=== PATIENT | female | born 1965 | race Caucasian/White ===

== ENCOUNTER → 2016-06-19 | Outpatient (CLI) | payer OTHER ==
[~2016-06-19] MED LIST: AMIT75TA2 PO; ASPEC325 PO; ASPI81TA28 PO; ATV/1 PO; CALC600T9 PO; FRCT/ PO; KETO10TA PO; LEVO75TA PO; MELO15TA4 PO; MULT-1027 PO; OXYC-57 PO; OXYC-88 PO; SUMA6KIT IM; [UNRECOGNIZED DRUG - OTHER] PO
[2016-06-19 15:07] LABS: BASO % 0.7 %; BASO ABS # 0.04 K/uL (0-0.2); COMPLETE YES; HEMATOCRIT 38.5 % (37-47); IG% 0.2 %; LYMPH ABS # 1.42 K/uL (1.2-3.4); MEAN CORPUSCULAR HEMOGLOBIN 33.7 pg (25-34); MEAN PLATELET VOLUME 9.9 fL (7.4-10.4); MONO % 12.5 %; NEUT % 59.6 %; PLATELET COUNT 547 K/uL (130-400); RED BLOOD COUNT 3.89 M/uL (4.2-5.4); WHITE BLOOD COUNT 5.91 K/uL (4.8-10.8)
== END | disposition home or self-care (01) ==
LOC: C.LAB 13:31
PROVIDERS: ATTEND Internal Medicine Hematology & Oncology
DX: D47.3 Essential (hemorrhagic) thrombocythemia (principal)

== ENCOUNTER → 2016-07-09 | Outpatient (CLI) | payer OTHER ==
--- NOTE | 2016-07-09 13:33 | MAMMOGRAPHY REPORT ---
UNILATERAL LEFT DIGITAL DIAGNOSTIC MAMMOGRAM TOMOSYNTHESIS WITH CAD: 07/09/2016 CLINICAL HISTORY: 50 year-old woman presents for follow-up in the left breast for probably benign cl ustered microcalcifications. She has a history of a benign right breast MRI guided biopsy and stron g family history of breast cancer. TECHNIQUE: Left breast CC and MLO 2-D digital and tomosynthesis images, spot magnification left CC a nd ML views were obtained. Current study was also evaluated with a Computer Aided Detection (CAD) s ystem. COMPARISON: Comparison is made to exams dated: 05/09/2016 mammogram, 12/29/2015 mammogram, 12/23/2015 mammogram, and 12/20/2014 mammogram - [facility]. BREAST COMPOSITION: The tissue of the left breast is extremely dense, which lowers the sensitivity of mammography. FINDINGS: The parenchymal pattern of the left breast is similar to prior mammograms. There are roun d and punctate microcalcifications in clusters and groupings throughout the entire left breast. The most concentrated cluster of microcalcifications is seen in the upper outer middle one third of the breast and spot magnification views were obtained in that area. In the upper outer middle one thir d of the left breast, 6-7 cm from the nipple, there is a 6 mm cluster of round and punctate microcal cifications. These have not significantly changed compared to the spot magnification views obtained on 12/29/2015, but are increasingly conspicuous compared to the 2013 and prior mammograms, therefor e indeterminate. Given the numerous other scattered and grouped round and punctate microcalcificati ons throughout the left breast, these may represent benign fibrocystic changes. However, given the increase and strong family history of breast cancer, definitive characterization with tissue samplin g of this dominant cluster is recommended. No obvious new mass, architectural distortion or new clu ster of calcifications is seen. IMPRESSION: ACR BI-RADS CATEGORY 4B: INTERMEDIATE SUSPICION FOR MALIGNANCY 1. Left breast stereotactic guided biopsy is recommended for a dominant 6 mm cluster of microcalcif ications in the upper outer middle one third of the breast, although these might calcifications coul d represent fibrocystic changes given numerous other scattered and grouped microcalcifications seen throughout the left breast. 2. Depending on pathology results, the patient is tentatively scheduled for a follow-up breast MRI in November 2016 to ensure stability status post benign MRI guided biopsy performed in May 2016. These results and recommendations were discussed with the patient at the time of the exam. She tent atively scheduled the left breast biopsy prior to leaving our department. Approximately 10% of breast cancers are not detected with mammography. A negative mammographic repor t should not delay biopsy if a clinically suggestive mass is present. Merlyn Eduardo M.D. ay/:07/09/2016 12:19:27 Drywall Hanger Framer: Xenia LOREDO(Karen)(Cr), [facility] letter sent: Abnormal 4/5 BI-RADS Code: ACR BI-RADS Category 4B: Intermediate Suspicion For Malignancy
== END | disposition home or self-care (01) ==
LOC: C.MAMM 09:37
PROVIDERS: ATTEND Obstetrics & Gynecology
DX: R92.0 Mammographic microcalcification found on diagnostic imaging of breast (principal)

== ENCOUNTER → 2016-07-19 | Outpatient (CLI) | payer OTHER ==
--- NOTE | 2016-07-19 08:30 | Discharge Instructions ---
Discharge Instructions Procedure Procedure Date: Jul 19, 2016. Reason for visit: Left Calcs. Discharge Discharge Date: Jul 19, 2016. Discharge Diagnosis: status post breast biopsy Instructions Activity Recommendations: Additional Limitations (see below) Return to School/Work: no limitations Recommended Home Diet: No Limitations Provider Instructions: ACTIVITY RECOMMENDATIONS: * No lifting, pushing, pulling or exercising the affected side for three days. RETURN TO SCHOOL/WORK: * You may return to work/school after the procedure, but do not perform any strenuous activities for 24 to 48 hours. MEDICATIONS: * Tylenol (two 325 mg) every four to six hours if needed for mild pain (if not allergic to Tylenol). DIET: * Resume previous diet. SPECIAL CARE INSTRUCTIONS: * Keep biopsy site dry for 24 hours. May shower after 24 hours, but do not soak (bathe) incision. * May remove Tegaderm (plastic patch) tomorrow AFTER showering. * Leave the steri-strips on for one week. Allow the steri-strips to fall off by themselves. If not off after one week, you may remove them. You may place a Bandaid crosswise over the strips, if desired. * Apply ice 10 minutes on and 10 minutes off as needed. * Wear a bra at bedtime to sleep more comfortably for 2-3 days. * Your referring physician should have the results after approximately 5 to 7 business days. * Call for unusual bleeding, fever, drainage, etc or if you have any questions call during normal business hours or after hours call Dr Malin, . FOLLOW UP VISIT: Follow-up with Referring Physician as scheduled. Allergies Coded Allergies: Penicillins (Verified Allergy, Mild, RASH, 05/22/16) RASH Sulfa Antibiotics (Verified Allergy, Unknown, RASH, 05/22/16) Vida Bautista Recommendations: Call your doctor if: * Temperature above 101 degrees * Pain not relieved by pain medicine ordered * There is increased drainage or redness from any incision * You have any unanswered questions or concerns. Your Doctors Instructions noted above were prepared by provider Candice Malin. Patient Signature Section: Patient Instructions Signature Page Marah Pollackz Patient (or Guardian) Signature/Date: I have read and understand the instructions given to me by my caregivers. Caregiver/RN/Doctor Signature/Date: The above-named patient and/or guardian has received patient instructions on this date. + Original Patient Signature Page (only) stays with chart. Please make copy for patient.
--- NOTE | 2016-07-19 13:44 | MAMMOGRAPHY REPORT ---
STEREOTACTIC GUIDED BIOPSY LEFT BREAST: 07/19/2016 CLINICAL HISTORY: Indeterminate calcifications in the left upper outer quadrant. PATIENT CONSENT: The procedure, risks, benefits, and alternatives of stereotactic biopsy with clip p lacement were discussed with the patient, and verbal and written consent was obtained. A timeout wa s performed immediately prior to the procedure. PROCEDURE DESCRIPTION: With stereotactic guidance, aseptic technique, and lidocaine as a local anest hetic (1% lidocaine to anesthetize the skin and 1% lidocaine with epinephrine to anesthetize the nereida per tissues), the area of concern was sampled multiple times with a 9-gauge vacuum-assisted biopsy n eedle (Suros Eviva). The path of approach was lateral. The specimen radiograph demonstrates calcif ications to be present in the samples. A metallic marker clip was placed at the biopsy site. This was confirmed on postprocedure mammograms. Direct pressure was applied at the biopsy site and hemos tasis was readily achieved. The patient tolerated the procedure without complication. She was give n wound care instructions. COMPARISON: Comparison is made to exams dated: 07/09/2016 mammogram, 12/23/2015 mammogram, 12/29/2015 m ammogram, 04/02/2016 breast MRI, 09/27/2015 breast MRI, and 12/20/2014 mammogram - [facility]. IMPRESSION: STEREOTACTIC GUIDED BIOPSY Stereotactic guided biopsy of indeterminate calcifications in the left upper outer quadrant, with cl ip placement. The patient will receive pathology results from her referring provider. If the patho logy results are benign, the patient can return to routine annual mammography, due December 2016. Candice Malin M.D. /:07/19/2016 08:32:46 Polymerization Helper: Joana LOREDO(Karen)(M), [facility]
--- NOTE | 2016-07-19 13:46 | MAMMOGRAPHY REPORT ---
UNILATERAL LEFT DIGITAL DIAGNOSTIC MAMMOGRAM: 07/19/2016 CLINICAL HISTORY: Status post stereotactic biopsy of left upper outer quadrant calcifications. TECHNIQUE: Postprocedural left CC and LM views were obtained. COMPARISON: Comparison is made to exams dated: 05/09/2016 mammogram, 04/02/2016 breast MRI, 6 mammogram, 12/23/2015 mammogram, 07/09/2016 mammogram, and 12/20/2014 mammogram - [facility]. BREAST COMPOSITION: The tissue of the left breast is extremely dense, which lowers the sensitivity of mammography. FINDINGS: A new biopsy marker clip is seen at the site of the biopsied calcifications in the left u pper outer quadrant. No significant post biopsy hematoma is seen. IMPRESSION: POST PROCEDURE IMAGING FOR MARKER PLACEMENT New biopsy marker clip status post stereotactic biopsy of left upper outer quadrant calcifications. Pathology results are pending. Approximately 10% of breast cancers are not detected with mammography. A negative mammographic repor t should not delay biopsy if a clinically suggestive mass is present. Candice Malin M.D. ah/:07/19/2016 08:44:05 Transfer Coordinator: Joana LOREDO(Karen)(M), [facility] BI-RADS Code: Post Procedure Imaging For Marker Placement
== END | disposition home or self-care (01) ==
LOC: C.MAMM 07:58
PROVIDERS: ATTEND Obstetrics & Gynecology
DX: R92.1 Mammographic calcification found on diagnostic imaging of breast (principal)

== ENCOUNTER → 2016-07-25 | Day surgery (SDC) | payer OTHER ==
[2016-07-24 10:13] VITALS: Ht 170.2 cm; Wt 66.8 kg
[~2016-07-25] VITALS: Ht 170.2 cm; Wt 66.8 kg
[~2016-07-25] MED LIST changes: +ATROPINE SULFATE 0.1 MG/ML 5ML SYR IV PRN; +CLINDAMYCIN PHOS 150 MG/ML 2 ML VIAL IV SCH; +DEXAMETHASONE SOD INJ 4 MG/ML VIAL ONE; +EpHEDrine SULFATE INJ 50 MG/ML AMP IV PRN; +EpINEphrine INJ 1MG/ML AMP 1 MG/ML AMP ONE; +FENTANYL CITRATE INJ 50 MCG/1 ML 2 ML VIAL ONE; +KETOROLAC TROMETHAMINE 30 MG/ML VIAL ONE; +LACTATED RINGER'S 1000ML 1,000 ML IV SCH; +LIDOCAINE HCL 2% 2 ML VIAL (20MG/ML) ONE; +MIDAZOLAM HCL 1 MG/ML 2ML VIAL ONE; +ONDANSETRON INJ 2 MG/ML 2 ML VIAL ONE; +OXYCODONE/ACETAMINOPHEN 5-325 TAB PO PRN; +PROPOFOL IV EMULSION 10 MG/ML 20 ML VIAL IV ONE; +ROPIVACAINE 0.5% 5 MG/ML 30 ML VIAL ONE; +SODIUM CHLORIDE 0.9% 1000ML 1,000 ML IV SCH
--- NOTE | 2016-07-25 07:46 | History & Physical Bridge - SC ---
H&P Re-Evaluation Bridge Note: I have examined the patient, reviewed the History & Physical and in the interval since the performance of the History & Physical I have noted the following changes of clinical significance: No changes noted
--- NOTE | 2016-07-25 08:39 | Discharge Instructions-SurgCtr ---
Discharge Instructions Visit Reason for Visit: Right Knee Acute Medial Meniscal Tear Discharge Discharge Diagnosis / Problem: right knee medial meniscus tear Discharge Goals Goal(s): Decrease discomfort, Therapeutic intervention Medications Stopped Medications Name(s): ASA- STOPPED 10 DAYS AGO. Activity Recommendations Activity Limitations: per Instructions/Follow-up section Weightbearing Status: Right weightbearing (as tolerated) Anesthesia . Post Anesthesia Instructions: If you have had General Anesthesia or IV Sedation: * Do not drive today. * Resume driving when surgeon permits. * Do not make important decisions or sign legal documents today. * Call surgeon for: 1. Temperature elevations greater than 101 degrees F. 2. Uncontrollable pain. 3. Excessive bleeding. 4. Persistent nausea and vomiting. 5. Medication intolerance (nausea, vomiting or rash). * For nausea and vomiting use only clear liquids such as: tea, soda, bouillon until nausea subsides, then gradually increase diet as tolerated. * If you have any concerns or questions, call your surgeon's office. If physician is unavailable and it is an emergency, call 911 or go to the nearest emergency room. . Instructions / Follow-Up Instructions / Follow-Up MEDICATIONS: * Resume previous medications unless instructed otherwise by your surgeon. * Always take pain medication on a full stomach or with food to avoid upset stomach. * Do not drink alcohol or drive while taking narcotics. * Tylenol may be taken if narcotic not needed. SPECIAL CARE INSTRUCTIONS: __ None _x_ Keep extremity elevated and iced x 48 hours; apply ice 20-30 minutes 8-10 times/day. May remove at night. __ Crutches __ May discard when able __ Brace/Post-op shoe __ 24 hrs/day __ Remove at night _x_ Dressing __ Maintain until seen in office, may shower with plastic over site _x_ Remove dressings in 24-48 hours and then may shower _x_ Cover incisions with band-aids after showering __ Do not remove steri-strips Call physician if chills or temperature rises above 102 degrees or pain unrelieved by prescribed pain medications. Office [phone] follow up in 2 weeks Diet Recommendations Home Diet: resume previous diet Procedures Procedures Performed: Right Knee Arthroscopy, Partial Medial Meniscectomy Pending Studies Studies pending at discharge: no Medical Emergencies . Who to Call and When: Medical Emergencies: If at any time you feel your situation is an emergency, please call 911 immediately. . Non-Emergent Contact Non-Emergency issues call your: Primary Care Provider, Surgeon . . "Provider Documentation" section prepared by Rusty Mccarthy.
[2016-07-25] MEDS: FENTANYL CITRATE INJ 50 MCG/1 ML 2 ML VIAL IV PRN ×2 (08:52→08:59)
--- NOTE | 2016-07-25 09:10 | OPERATIVE REPORT ---
DATE OF OPERATION: 07/25/2016 PREOPERATIVE DIAGNOSIS: Right degenerative medial meniscus tear. POSTOPERATIVE DIAGNOSIS: Same. PROCEDURE PERFORMED: 1. Right knee exam under anesthesia. 2. Right knee diagnostic arthroscopy. 3. Right knee arthroscopic partial medial meniscectomy. SURGEON: Dr. Baltazar Dickson. REVENUE CYCLE ADMINISTRATOR: Rusty Mccarthy PA-C. COMPLICATIONS: None. ESTIMATED BLOOD LOSS: Minimal. TOURNIQUET TIME: 19 minutes at 300 mmHg. ANESTHESIA: General. SPECIMENS: None. OPERATIVE INDICATIONS: The patient is a 50-year-old female who has had about a 2-year history of right knee pain and discomfort which has kind of waxed and waned over time. Over the past several months she has developed increasing mechanical symptoms. She did have an MRI which revealed a significant medial meniscus tear. Fairly minimal degenerative change. The patient would like to proceed with operative treatment. OPERATIVE FINDINGS: Examination under anesthesia of the right knee revealed minimal effusion. Her range of motion is full extension to 135+ degrees of flexion. There is no clinical instability. Debra did create a little clicking medially. ARTHROSCOPIC FINDINGS: Arthroscopic findings revealed a very minimal knee effusion. The undersurface of the patella and trochlea were well preserved. In the intercondylar notch, the ACL and PCL were intact. In the lateral compartment, the articular surface of the meniscus was intact. A little fraying of the inner rim of the meniscus. Some slight age-related changes to the cartilage. In the medial compartment, there was a very complex degenerative tear of the posterior horn of the medial meniscus. There were anterior and posterior flap components. The articular surface revealed some age-related changes. OPERATIVE PROCEDURE: The patient taken to the operating room, identified and placed on the operating table in supine position. All contact areas were appropriately padded. IV antibiotics were provided by anesthesia team. A general anesthetic was implemented by anesthesia team. Right thigh tourniquet was then placed. The right knee was then examined under anesthesia with the findings as described above. The right leg was then prepped and draped in the usual sterile fashion. The right leg was elevated and exsanguinated with Esmarch and tourniquet was placed at 300 mmHg. Routine right knee arthroscopy was then performed through typical anteromedial and anterolateral portals. Supralateral outflow portal were established for outflow. Attention was then drawn to the medial meniscus. With the use of motorized and hand controlled instruments, a partial medial meniscectomy was then performed. I resected the anterior and posterior flap components as well as any unstable horizontal cleavage components. There was a kind of a radial tear so we had to resect some back to the capsular junction. Once this was complete, I did place the scope throughout the knee joint. All extraneous debris was removed. I did just debride some of the inner fraying of the lateral meniscus with a shaver. Once this was complete, the arthroscopic instruments were then removed from the joint. The portals were closed with 3-0 Prolene suture in simple fashion. The knee was injected with 30 mL of 0.5% ropivacaine with epinephrine and 30 mg of Toradol. A sterile dressing with Xeroform, 4 x 4, sterile cast padding and Percy bandage were applied. The tourniquet was let down for a tourniquet time 19 minutes. The patient then brought out of general anesthesia and transferred to the recovery room in stable condition. The patient tolerated the procedure with no complications. All needle and sponge counts were correct at the end of the operation. I attest to the content of the Intraoperative Record and any orders documented therein. Any exceptions are noted below. JENNI
[2016-07-25 09:17] VITALS: TEMP 37
--- NOTE | 2016-07-25 09:41 | Anesthesia Progress Nt - [facility] ---
Anesthesia Post Op Note Date & Time Jul 25, 2016 at 09:41 Vital Signs Pain Intensity: 4.0 Vital Signs Past 12 Hours Date Time Temp Pulse Resp B/P Pulse Ox O2 Delivery O2 Flow Rate FiO2 07/25/16 09:17 37 86 16 118/76 98 Room Air 07/25/16 09:10 87 13 95 07/25/16 09:10 37 88 13 07/25/16 09:08 113/81 07/25/16 09:05 92 15 97 07/25/16 09:05 93 15 07/25/16 09:03 113/83 07/25/16 09:01 114/88 07/25/16 09:00 88 12 96 07/25/16 09:00 89 12 07/25/16 08:58 114/88 07/25/16 08:56 127/75 07/25/16 08:55 99 14 07/25/16 08:55 98 14 96 07/25/16 08:54 127/75 07/25/16 08:53 127/75 07/25/16 08:50 97 15 07/25/16 08:50 94 15 97 07/25/16 08:48 120/82 07/25/16 08:45 103 22 07/25/16 08:45 103 22 100 07/25/16 08:43 104/69 07/25/16 08:40 93 15 100 07/25/16 08:40 93 15 07/25/16 08:38 100/66 07/25/16 08:35 82 9 100 07/25/16 08:35 82 9 07/25/16 08:34 94/53 07/25/16 08:32 90/49 07/25/16 08:31 37 86 16 90/49 96 Room Air 07/25/16 07:14 36.6 96 16 129/98 96 Room Air Notes Mental Status: alert / awake / arousable, participated in evaluation Pt Amnestic to Procedure: Yes Nausea / Vomiting: adequately controlled Pain: adequately controlled Airway Patency, RR, SpO2: stable & adequate BP & HR: stable & adequate Hydration State: stable & adequate Anesthetic Complications: no major complications apparent
[2016-07-25 09:46] VITALS: BP 125/82; PULSE 78; O2SAT 99
== END | disposition home or self-care (01) ==
LOC: X.SURG 07:00
PROVIDERS: ATTEND Orthopaedic Surgery Sports Medicine
DX: M23.221 Derangement of posterior horn of medial meniscus due to old tear or injury, right knee (principal); E03.9 Hypothyroidism, unspecified; M19.90 Unspecified osteoarthritis, unspecified site; Z90.89 Acquired absence of other organs; Z88.2 Allergy status to sulfonamides; Z88.0 Allergy status to penicillin

== ENCOUNTER → 2016-09-12 | Outpatient (CLI) | payer OTHER ==
[~2016-09-12] MED LIST changes: -ASPI81TA28 PO; -ATROPINE SULFATE 0.1 MG/ML 5ML SYR IV PRN; -CLINDAMYCIN PHOS 150 MG/ML 2 ML VIAL IV SCH; -DEXAMETHASONE SOD INJ 4 MG/ML VIAL ONE; -EpHEDrine SULFATE INJ 50 MG/ML AMP IV PRN; -EpINEphrine INJ 1MG/ML AMP 1 MG/ML AMP ONE; -FENTANYL CITRATE INJ 50 MCG/1 ML 2 ML VIAL ONE; -KETO10TA PO; -KETOROLAC TROMETHAMINE 30 MG/ML VIAL ONE; -LACTATED RINGER'S 1000ML 1,000 ML IV SCH; -LIDOCAINE HCL 2% 2 ML VIAL (20MG/ML) ONE; -MELO15TA4 PO; -MIDAZOLAM HCL 1 MG/ML 2ML VIAL ONE; -ONDANSETRON INJ 2 MG/ML 2 ML VIAL ONE; -OXYC-88 PO; -OXYCODONE/ACETAMINOPHEN 5-325 TAB PO PRN; -PROPOFOL IV EMULSION 10 MG/ML 20 ML VIAL IV ONE; -ROPIVACAINE 0.5% 5 MG/ML 30 ML VIAL ONE; -SODIUM CHLORIDE 0.9% 1000ML 1,000 ML IV SCH
== END | disposition home or self-care (01) ==
LOC: C.PAPS 14:39
PROVIDERS: ATTEND Obstetrics & Gynecology
DX: Z12.4 Encounter for screening for malignant neoplasm of cervix (principal); R87.612 Low grade squamous intraepithelial lesion on cytologic smear of cervix (LGSIL); Z87.42 Personal history of other diseases of the female genital tract; G47.00 Insomnia, unspecified

== ENCOUNTER → 2016-09-17 | Outpatient (CLI) | payer OTHER ==
[2016-09-17 17:03] LABS: BASO % 0.5 %; BASO ABS # 0.03 K/uL (0-0.2); COMPLETE YES; EOS % 2.2 %; HEMATOCRIT 35.1 % (37-47); IG% 0.2 %; LYMPH % 30.5 %; MEAN CELL VOLUME 97.8 fL (80-100); MEAN CORPUSCULAR HEMOGLOBIN 33.4 pg (25-34); MEAN CORPUSCULAR HGB CONC 34.2 g/dl (32-36); NEUT % 58.6 %; PLATELET COUNT 436 K/uL (130-400); RED BLOOD COUNT 3.59 M/uL (4.2-5.4); WHITE BLOOD COUNT 5.91 K/uL (4.8-10.8)
== END | disposition home or self-care (01) ==
LOC: C.LABBC 14:39
PROVIDERS: ATTEND Internal Medicine Hematology & Oncology
DX: D47.3 Essential (hemorrhagic) thrombocythemia (principal)

== ENCOUNTER → 2016-10-23 | Outpatient (CLI) | payer OTHER | END | disposition home or self-care (01) | LOC: C.PATHSPEC 11:09 | PROVIDERS: ATTEND Obstetrics & Gynecology | DX: R87.612 Low grade squamous intraepithelial lesion on cytologic smear of cervix (LGSIL) (principal) ==

== ENCOUNTER → 2016-12-27 | Outpatient (CLI) | payer OTHER ==
--- NOTE | 2016-12-28 08:08 | MAMMOGRAPHY REPORT ---
BILATERAL DIGITAL SCREENING MAMMOGRAM TOMOSYNTHESIS WITH CAD: 12/27/2016 CLINICAL HISTORY: Routine screening. Patient has no complaints. TECHNIQUE: Breast tomosynthesis in addition to standard 2D mammography was performed. Current study was also evaluated with a Computer Aided Detection (CAD) system. COMPARISON: Comparison is made to exams dated: 07/19/2016 mammogram, 12/23/2015 mammogram, 12/20/2014 m ammogram, 12/15/2013 mammogram, 11/27/2012 mammogram, and 11/22/2011 mammogram - [facility]. BREAST COMPOSITION: The tissue of both breasts is extremely dense, which lowers the sensitivity of m ammography. FINDINGS: There are stable metallic biopsy marker is in the upper inner quadrant of the right breast , and upper outer quadrant of the left breast. A few other scattered stable punctate microcalcificat ions bilaterally. No new suspicious mass, architectural distortion or cluster of microcalcifications is seen. IMPRESSION: ACR BI-RADS CATEGORY 1: NEGATIVE There is no mammographic evidence of malignancy. A 1 year screening mammogram is recommended. The pa tient will receive written notification of the results. Approximately 10% of breast cancers are not detected with mammography. A negative mammographic report should not delay biopsy if a clinically suggestive mass is present. Merlyn Eduardo M.D. ay/:12/27/2016 16:10:45 Interstate Bus Dispatcher: Xenia GRAVES)(rC), [facility] letter sent: Normal 1/2 BI-RADS Code: ACR BI-RADS Category 1: Negative
== END | disposition home or self-care (01) ==
LOC: C.MAMM 07:51
PROVIDERS: ATTEND Obstetrics & Gynecology
DX: Z12.31 Encounter for screening mammogram for malignant neoplasm of breast (principal)

== ENCOUNTER → 2017-01-17 | Outpatient (CLI) | payer OTHER ==
[2017-01-17 13:22] LABS: BASO % 0.7 %; BASO ABS # 0.04 K/uL (0-0.2); COMPLETE YES; EOS % 3.1 %; HEMATOCRIT 36.9 % (37-47); LYMPH ABS # 1.09 K/uL (1.2-3.4); MEAN CELL VOLUME 99.7 fL (80-100); MEAN CORPUSCULAR HEMOGLOBIN 32.4 pg (25-34); MEAN CORPUSCULAR HGB CONC 32.5 g/dl (32-36); MEAN PLATELET VOLUME 9.9 fL (7.4-10.4); MONO % 10.9 %; NEUT % 67.3 %; PLATELET COUNT 499 K/uL (130-400); WHITE BLOOD COUNT 6.06 K/uL (4.8-10.8)
== END | disposition home or self-care (01) ==
LOC: C.LABBC 09:30
PROVIDERS: ATTEND Internal Medicine Hematology & Oncology
DX: D47.3 Essential (hemorrhagic) thrombocythemia (principal)

== ENCOUNTER → 2017-02-14 | Outpatient (CLI) | payer OTHER ==
[~2017-02-14] MED LIST changes: -OXYC-57 PO
--- NOTE | 2017-02-14 15:20 | DIAGNOSTIC IMAGING REPORT ---
CHEST 2 VIEWS ROUTINE CLINICAL HISTORY: R05 Cough dyspnea COMPARISON STUDY: 09/02/2014 FINDINGS: The bones soft tissues and hemidiaphragms are normal. The cardiomediastinal silhouette is normal. The lungs are clear. The pulmonary vasculature is normal. IMPRESSION: Negative chest. The above report was generated using voice recognition software. It may contain grammatical, syntax or spelling errors. Electronically signed by: Micah Bazan M.D. 02/14/2017 3:19 PM Dictated Date/Time: 02/14/2017 3:18 PM
== END | disposition home or self-care (01) ==
LOC: C.RADBC 15:06
PROVIDERS: ATTEND Internal Medicine
DX: R05 Cough (principal)

== ENCOUNTER → 2017-02-18 | Outpatient (CLI) | payer OTHER ==
--- NOTE | 2017-02-18 08:15 | DIAGNOSTIC IMAGING REPORT ---
MRI OF THE RIGHT KNEE WITHOUT CONTRAST CLINICAL HISTORY: Persistent right knee pain status post arthroscopy. Previous bilateral meniscectomies. COMPARISON STUDY: MRI of the right knee October 29, 2014. TECHNIQUE: Utilizing a 1.5 Gwen magnet and dedicated coil, multiplanar, multiecho imaging of the right knee was performed without intravenous or intraarticular contrast. FINDINGS: Alignment of the right knee is anatomic. A moderate size right knee joint effusion is noted. This was not present on MRI October 29, 2014. The anterior and posterior cruciate ligaments are intact. The medial collateral ligament and lateral collateral ligament complex are intact. There is mild lateral patellar tilt. Moderate chondrosis of the medial patellar cartilage with subchondral signal abnormality is noted. This has slightly progressed since exam of October 29, 2014. There is severe chondrosis within the medial compartment with near complete loss of cartilage of the medial tibial plateau and marked cartilage thinning of the medial femoral condyle which has significantly progressed since exam of October 29, 2014. There is extensive subchondral edema within the anterior aspect of the medial tibial plateau. There is associated linear hypointense signal. There is moderate focal marrow edema within the posterior aspect of the medial femoral condyle. There is subchondral signal abnormality within the anterior aspect of the lateral femoral condyle which has developed since prior MRI. There is subtle signal abnormality and fraying along the free of the body of the lateral meniscus without discrete lateral meniscal tear. The appearance of the medial meniscus is markedly abnormal. The meniscus contains oblique signal within the body and posterior horn which has increased since MRI of October 29, 2014. IMPRESSION: 1. Significant progression of severe chondrosis within the medial compartment since MRI of October 29, 2014. Moderate marrow edema within the medial tibial plateau and mild focal edema within the medial femoral condyle is related to overlying chondrosis. Associated nondisplaced subchondral fractures would be difficult to exclude but are considered unlikely. 2. Oblique linear signal abnormality within the medial meniscus which likely reflects tear although previous meniscectomy could appear similar. 3. Moderate size right knee joint effusion. 4. Moderate chondrosis within the patellofemoral compartment. Electronically signed by: Simeon Hughes M.D. 02/18/2017 8:13 AM Dictated Date/Time: 02/18/2017 8:02 AM
--- NOTE | 2017-02-18 08:24 | DIAGNOSTIC IMAGING REPORT ---
LEFT LOWER EXT JOINT WITHOUT CLINICAL HISTORY: KNEE PAIN pain TECHNIQUE: MRI multi axial acquisition COMPARISON STUDY: None FINDINGS: Moderate reactive bone marrow edema versus contusion medial tibial plateau. Signal characteristics of the osseous structures are otherwise unremarkable. The cruciate ligaments are intact. The collateral ligaments are intact. Considerable thinning and partial loss of the articular services of the medial joint compartment. Lateral compartment is unremarkable. Moderate maceration and/or deterioration of the medial meniscal articular surface. Internal matrix deterioration considered grade 2. A well-defined acute medial meniscal tear is not seen. Very slight apical truncation mid apex lateral meniscus. This potentially is degenerative. No well-defined acute meniscal tear. Small joint effusion. Several small synechiae of the suprapatellar bursa. IMPRESSION: 1. Small joint effusion with several small synechiae of the suprapatellar bursa. 2. Contusion versus degenerative edema medial tibial plateau. 3. Degenerative thinning of the articular services of the medial and to a lesser extent lateral joint compartment. 4. No evidence for an acute meniscal tear although moderate matrix deterioration of the menisci bilaterally is noted. The above report was generated using voice recognition software. It may contain grammatical, syntax or spelling errors. Electronically signed by: Micah Bazan M.D. 02/18/2017 8:22 AM Dictated Date/Time: 02/18/2017 8:15 AM
== END | disposition home or self-care (01) ==
LOC: C.MRI 06:37
PROVIDERS: ATTEND Specialist
DX: M22.2X1 Patellofemoral disorders, right knee (principal); M25.461 Effusion, right knee; M23.300 Other meniscus derangements, unspecified lateral meniscus, right knee

== ENCOUNTER → 2017-02-18 | Outpatient (CLI) | payer OTHER ==
[2017-02-18 10:22] LABS: ALT/SGPT 29 U/L (12-78); BLOOD UREA NITROGEN 9 mg/dl (7-18); BUN/CREATININE RATIO 15.2 (10-20); CALCIUM 9.5 mg/dl (8.5-10.1); CARBON DIOXIDE 29 mmol/L (21-32); CHLORIDE 101 mmol/L (98-107); CHOLESTEROL 313 mg/dl (0-200); CREATININE 0.62 mg/dl (0.60-1.20); GLUCOSE 87 mg/dl (70-99); POTASSIUM 3.9 mmol/L (3.5-5.1); SODIUM 136 mmol/L (136-145); TRIGLYCERIDES 113 mg/dl (0-150); VERY LOW DENSITY LIPOPROT CALC 23 mg/dl
[2017-02-18 10:32] LABS: ALB/GLOB RATIO 1.2 (0.9-2); ALKALINE PHOSPHATASE 68 U/L (45-117); AST/SGOT 30 U/L (15-37); CHOLESTEROL/HDL RATIO 3.2; HDL CHOLESTEROL 97 mg/dl; LDL CHOLESTEROL CALCULATED 193 mg/dl; THYROID STIMULATING HORMONE 0.707 uIu/ml (0.300-4.500)
== END | disposition home or self-care (01) ==
LOC: C.LAB 08:48
PROVIDERS: ATTEND Internal Medicine
DX: G47.00 Insomnia, unspecified (principal)

== ENCOUNTER 2017-06-25 05:14 | Inpatient (IN) | payer OTHER ==
[2017-06-07 09:53] VITALS: BMI 23.0
--- NOTE | 2017-06-07 10:32 | PAT Medication Instructions ---
Service Date Jun 07, 2017. Current Home Medication List Acetamin/Butalbital/Caffeine (Fioricet), 1 TAB PO UD PRN for Migraine Amitriptyline Hcl (Elavil), 75 MG PO HS Aspirin (Aspirin Ec), 81 MG PO QAM Calcium Carbonate-Vitamin D (Calcium + D), 1 TAB PO QAM Glucosamine Sulfate (Glucosamine), 1,000 MG PO QAM Levothyroxine Sodium (Synthroid), 75 MCG PO QAM Lorazepam (Ativan), 1 MG PO HS PRN for Sleep Multiple Vitamin (Multi Vitamin), 1 TAB PO QAM Oxycodone/Acetaminophen 10MG/325MG (Percocet 10MG/325MG), 1 TAB PO Q6 PRN for Migraine Sumatriptan Succinate (Imitrex Statdose), 1 DOSE IM DAILY PRN for Migraine Medication Instructions For Your Scheduled Surgery - Hold the following medications 2 weeks prior to surgery: Glucosamine Sulfate (Glucosamine), 1,000 MG PO QAM - Hold the following medications the morning of surgery: Acetamin/Butalbital/Caffeine (Fioricet), 1 TAB PO UD PRN for Migraine Calcium Carbonate-Vitamin D (Calcium + D), 1 TAB PO QAM Multiple Vitamin (Multi Vitamin), 1 TAB PO QAM - Take the following medications the morning of surgery with a sip of water OTHERWISE NOTHING TO EAT OR DRINK AFTER MIDNIGHT: Aspirin (Aspirin Ec), 81 MG PO QAM Levothyroxine Sodium (Synthroid), 75 MCG PO QAM Oxycodone/Acetaminophen 10MG/325MG (Percocet 10MG/325MG), 1 TAB PO Q6 PRN for Migraine (may take if needed up to 4 hours prior to surgery) Sumatriptan Succinate (Imitrex Statdose), 1 DOSE IM DAILY PRN for Migraine - Take the following medications as scheduled the night before surgery: Lorazepam (Ativan), 1 MG PO HS PRN for Sleep Amitriptyline Hcl (Elavil), 75 MG PO HS Oxycodone/Acetaminophen 10MG/325MG (Percocet 10MG/325MG), 1 TAB PO Q6 PRN for Migraine Sumatriptan Succinate (Imitrex Statdose), 1 DOSE IM DAILY PRN for Migraine If you have any questions please call us at [phone] or [phone] or [phone]
[2017-06-07 11:57] LABS: BASO % 1.1 %; BASO ABS # 0.05 K/uL (0-0.2); EOS % 4.1 %; EOS ABS # 0.19 K/uL (0-0.5); HEMATOCRIT 36.9 % (37-47); HEMOGLOBIN 12.6 g/dL (12.0-16.0); IG# 0.01 K/uL (0.00-0.02); LYMPH % 28.4 %; LYMPH ABS # 1.32 K/uL (1.2-3.4); MEAN CELL VOLUME 96.6 fL (80-100); MEAN CORPUSCULAR HGB CONC 34.1 g/dl (32-36); MEAN PLATELET VOLUME 9.8 fL (7.4-10.4); MONO % 9.7 %; MONO ABS # 0.45 K/uL (0.11-0.59); NEUT % 56.5 %; NEUT ABS # 2.63 K/uL (1.4-6.5); PLATELET COUNT 481 K/uL (130-400); RED CELL DISTRIBUTION WIDTH CV 12.4 % (11.5-14.5); RED CELL DISTRIBUTION WIDTH SD 43.5 fL (36.4-46.3); WHITE BLOOD COUNT 4.65 K/uL (4.8-10.8)
[2017-06-07 12:08] LABS: PTT PATIENT 25.4 SECONDS (21.0-31.0)
[2017-06-07 12:23] LABS: CALCIUM 9.7 mg/dl (8.5-10.1); CREATININE 0.65 mg/dl (0.60-1.20); POTASSIUM 4.2 mmol/L (3.5-5.1)
--- NOTE | 2017-06-21 19:04 | HISTORY & PHYSICAL EXAMINATION ---
DATE OF ADMISSION: 06/25/2017 CHIEF COMPLAINT: Left knee pain. 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 She is well known to me as I had scoped her right knee about a year ago and Dr. Hyde scoped her left knee about 2 years ago. She did not really do great from either knee arthroscopy. She is continued to be bothered by knee pain. The left side has been quite a bit worse than right. She has been through extensive conservative care including anti-inflammatories and injections. Pain is mostly all medial. Left knee is quite a bit worse than the right. X-rays show progressive medial joint space narrowing, and she has elected to proceed with a left partial knee replacement. She has failed both steroid shot and Viscosupplementation in the past. PAST MEDICAL HISTORY: Significant for: 1. Thrombocytosis followed by Dr. Dawson and cleared for surgery. 2. Arthritis. 3. Hypothyroidism. PAST SURGICAL HISTORY: Includes: 1. The left knee scope done in 07/26/[address] Hyde. 2. Right knee scope, done by myself in 07/25/2016. 3. Tonsillectomy. ALLERGIES: PENICILLIN AND SULFA. CURRENT MEDICINES: Include: 1. Levothyroxine 75 mcg a day. 2. Amitriptyline 75 mg a day. 3. Ativan 1 mg a day. 4. Fioricet once a day. 5. Oxycodone p.r.n. 6. Aspirin 81 mg a day. SOCIAL HISTORY: A 51-year-old female. 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 She is . One to two drinks per week. Does not smoke. FAMILY HISTORY: Significant for breast cancer. REVIEW OF SYSTEMS: Negative for diabetes, neurologic problems, vascular problems, bleeding disorders. Denies any chest pain, no shortness of breath. No history of DVT or PE. She does have this elevated platelets and has been seen by Dr. Dawson and cleared for surgery with routine DVT prophylaxis. PHYSICAL EXAMINATION: GENERAL: Reveals, middle-aged female. She looks to be in excellent health. HEENT: Benign. NECK: Supple. No lymphadenopathy. LUNGS: Clear to auscultation. HEART: Has a regular rate and rhythm. ABDOMEN: Soft, nontender, nondistended. EXTREMITIES: Grossly neurovascularly intact except as follows: Examination of the left knee reveals the patient walks with a slight bit of a limp. Slight varus alignment to her knee. There is well healed portal sites around her knee. Small knee effusion. She is tender over the medial joint line. Range of motion 0-125. No instability. Debra's caused pain but no mechanical symptoms. IMAGING DATA: X-rays of the left knee reviewed. It shows a moderately advanced medial compartment DJD on the left side. She has small osteophytes off the medial femoral condyle and medial tibial plateau. Near complete loss of her joint space. On stress film, her medial compartment opens up and the lateral compartment is well preserved. ASSESSMENT: A 51-year-old female 2 years out from a left knee arthroscopy, partial meniscectomy and chondroplasty with persistent pain, unresponsive to conservative care. She would like to proceed with definitive treatment. I think this patient is a good candidate for partial knee replacement. PLAN: We talked about treatment options. Best option is a partial knee replacement. I do not think she would be happy with a full knee replacement. The risks and benefits of the left partial knee replacement were explained to the patient including but not limited to DVT, PE, , infection, neurological injury, vascular injury, bleeding problem, pain, limited range of motion, stiffness, failure to relieve her symptoms, incomplete relief of symptoms, need for further surgery in the future, fracture, leg length inequality, nerve palsy, persistent pain, dislocation, need for revision surgery in the future. The patient understands and desires to proceed. Informed consent was obtained. I did explain to her that if we get in there and the disease is worse and what looks like on x-ray, will do a full knee replacement. The patient does have elevated platelet levels and has been seen by Dr. Dawson and cleared for surgery. We will use aspirin for DVT prophylaxis. Will also use TEDs and SCDs. MTDD
[2017-06-25] VITALS (10 sets, daily range): BP systolic 112–140; BP diastolic 81–91; PULSE 67–91; TEMP 36.3–37.6; O2SAT 96–100; Ht 170.2 cm; Wt 69.2 kg
[~2017-06-25] VITALS: Ht 170.2 cm; Wt 69.2 kg
[~2017-06-25 05:14] MED LIST changes: -ASPEC325 PO; +ASPI81TA28 PO; +GLUC10007 PO; +OXYC-106 PO; -[UNRECOGNIZED DRUG - OTHER] PO
[2017-06-25] MEDS ORDERED: BUPIVACAINE LIPOSOME 266 MG, BUPIVACAINE/EPINEPHRINE INJ 50 ML, SODIUM CHLORIDE 0.9% PF... INFIL SCH ×3 (06:00)
[2017-06-25] MEDS ORDERED: LACTATED RINGER'S 1000ML IV SCH (06:00)
[2017-06-25] MEDS ORDERED: GABAPENTIN 300 MG CAP PO SCH (06:00)
[2017-06-25] MEDS ORDERED: FAMOTIDINE 20 MG TAB PO SCH (06:00)
[2017-06-25] MEDS ORDERED: TRANEXAMIC ACID INJ 1,000 MG in SYRINGE 0 ML IV SCH (06:00)
[2017-06-25] MEDS ORDERED: METOCLOPRAMIDE HCL 10 MG TAB PO SCH (06:00)
[2017-06-25] MEDS ORDERED: LACTATED RINGER'S 1000ML 1,000 ML IV SCH (06:00)
[2017-06-25] MEDS ORDERED: CEFAZOLIN 2000MG IV PUSH 10 ML IV SCH (06:00)
[2017-06-25] MEDS ORDERED: ACETAMINOPHEN 500 MG TAB PO SCH (06:00)
[2017-06-25] MEDS ORDERED: LACTATED RINGER'S 1000ML 500 ML IV SCH (06:00)
[2017-06-25] MEDS ORDERED: SCOPOLAMINE 1.5 MG TDSY TD SCH (06:00)
[2017-06-25] MEDS ORDERED: BUPIVACAINE 0.5 % 5 MG/1 ML PF 10ML VIAL ONE (06:24)
[2017-06-25] MEDS ORDERED: FENTANYL CITRATE INJ 50 MCG/1 ML 2 ML VIAL ONE (06:29)
[2017-06-25] MEDS ORDERED: PROPOFOL IV EMULSION 10 MG/ML 20 ML VIAL IV ONE ×2 (06:29→07:08)
[2017-06-25] MEDS ORDERED: MIDAZOLAM HCL 1 MG/ML 2ML VIAL ONE (06:29)
[2017-06-25] MEDS ORDERED: LIDOCAINE HCL 2% 2 ML VIAL (20MG/ML) ONE (06:29)
[2017-06-25] MEDS ORDERED: SODIUM CHLORIDE 0.9% PF 50 ML VIAL ONE (06:30)
[2017-06-25] MEDS ORDERED: BUPIVACAINE LIPOSOME 1/3% 266 MG/20 ML VIAL INFIL ONE (06:30)
[2017-06-25] MEDS ORDERED: BUPIVACAINE/EPINEPHRINE 0.25% 1:200,000 30 ML VIAL ONE (06:30)
[2017-06-25] MEDS ORDERED: BACITRACIN 50000 UNIT VIAL ONE (06:30)
[2017-06-25] MEDS ORDERED: FENTANYL CITRATE INJ 50 MCG/1 ML 2 ML VIAL IV PRN (07:00)
[2017-06-25] MEDS ORDERED: EpHEDrine SULFATE INJ 50 MG/ML AMP IV PRN (07:00)
[2017-06-25] MEDS ORDERED: ONDANSETRON INJ 2 MG/ML 2 ML VIAL IV PRN ×2 (07:00→09:00)
[2017-06-25] MEDS ORDERED: ATROPINE SULFATE 0.1 MG/ML 5ML SYR IV PRN (07:00)
--- NOTE | 2017-06-25 08:46 | [facility] Post Operative Brief Note ---
Immediate Operative Summary Operative Date Jun 25, 2017. Pre-Operative Diagnosis Advanced Medial Compartment Degenerative Joint Disease Left Knee Post-Operative Diagnosis Advanced Medial Compartment Degenerative Joint Disease Left Knee Procedure(s) Performed Left Unicompartmental Knee Arthroplasty Surgeon Dr. Dickson Piecer Up Surgeon(s) JAY Riojas Estimated Blood Loss 20 ml Findings Consistent with Post-Op Diagnosis Fluids (cc crystalloids) 1600 cc Specimens A. Left Knee Bone and Tissue Drains None Anesthesia Type MAC Spinal Regional Complication(s) none Disposition Accompanied Pt To Recover: no Disposition: Recovery Room / PACU
[2017-06-25] MEDS ORDERED: MoRPHine SULFATE 2 MG/ML CARP IV PRN (09:00)
[2017-06-25] MEDS ORDERED: MULTIVITAMIN TAB PO SCH (09:00)
[2017-06-25] MEDS ORDERED: LORAZEPAM 1 MG TAB PO PRN (09:00)
[2017-06-25] MEDS ORDERED: CEFAZOLIN IV 1,000 MG in DEXTROSE 5% 50ML 50 ML IV SCH (09:00)
[2017-06-25] MEDS ORDERED: METOCLOPRAMIDE HCL INJ 5 MG/ML 2 ML VIAL IV PRN (09:00)
[2017-06-25] MEDS ORDERED: ALUMINUM/MAGNESIUM/SIMETH (MAALOX MAX) 30 ML UDC PO PRN (09:00)
[2017-06-25] MEDS ORDERED: ZOLPIDEM TARTRATE 5 MG TAB PO PRN (09:00)
[2017-06-25] MEDS ORDERED: BISACODYL 10 MG SUPP PR PRN (09:00)
[2017-06-25] MEDS ORDERED: MAGNESIUM HYDROXIDE SUSP 30 ML UDC PO PRN (09:00)
[2017-06-25] MEDS ORDERED: DiphenhydrAMINE HCL 50 MG/ML VIAL IV PRN (09:00)
--- NOTE | 2017-06-25 09:22 | OPERATIVE REPORT ---
DATE OF OPERATION: 06/25/2017 SURGEON: Dr. Baltazar Dickson. CORRECTIONAL PROGRAM OFFICER: JAY Sagastume PREOPERATIVE DIAGNOSIS: Left knee advanced medial compartment degenerative joint disease. POSTOPERATIVE DIAGNOSIS: Same. PROCEDURE PERFORMED: Left Biomet [place] mobile-bearing partial knee replacement. COMPLICATIONS: None. ESTIMATED BLOOD LOSS: 20 mL. FLUID REPLACEMENT: 1600 mL crystalloid fluid replacement. ANESTHESIA: Spinal with adductor canal block. DRAINS: None. SPECIMENS: Left knee sent for pathology. OPERATIVE INDICATIONS: The patient is a 51-year-old female who has had a fairly long history of bilateral knee pain and discomfort. She underwent a left knee arthroscopy 2 years ago, which provided really pretty minimal relief. She developed progressive medial compartment arthritis. Her symptoms localized to the medial side of her knee. She elected to proceed with partial knee replacement. OPERATIVE FINDINGS: Operative findings revealed advanced medial compartment DJD with grade 4 [id number] disease in the medial femoral condyle and medial tibial plateau. The rest of her knee joint was pretty well preserved. She did have significant joint effusion. ACL was intact. OPERATIVE IMPLANTS: Operative implants consisted of: 1. Biomet [place] size small femoral component. 2. Biomet left medial size B tibial tray. 3. A 5-mm mobile-bearing insert. OPERATIVE PROCEDURE: The patient was taken to the operating room, identified and placed on the operating table in the supine position. All contact areas were appropriately padded. IV antibiotics were provided by the anesthesia team. A spinal anesthetic and adductor canal block had been provided in the holding area. San catheter was placed in the sterile fashion. A left thigh tourniquet was then placed and left lower extremity was then prepped and draped in the usual sterile fashion. The left leg was elevated and exsanguinated with Esmarch and tourniquet was placed at 300 mmHg. An anterior approach to the left knee was then performed through a longitudinal incision beginning at the superior pole of the patella and extending just medial to the tibial tubercle. Sharp dissection was carried out through the subcutaneous tissues down to the level of the extensor mechanism. A medial parapatellar arthrotomy incision was made. Some subperiosteal dissection was carried out medially, taking great care to protect the MCL. The fat pad was resected from beneath the patellar tendon. I then examined the lateral and patellofemoral compartments, which were fairly well preserved. We proceeded with a partial knee replacement. The osteophytes were taken off the distal femur as well as the intercondylar notch area. The femur was sized to a size small. The small spoon was then placed over the femur and connected to the external tibial alignment jig. The 4G clamp was used. The proximal tibial cut was made. We sized the tibia to a size B. Attention was then drawn to the femur. The intramedullary canal was opened and an intramedullary guide was placed. A small femoral component was placed with the femoral sizing device set at 4. The femoral guide was then attached to the intramedullary brock and the holes were drilled for the femoral component. The posterior cutting guide was placed and the posterior cut was made. The 0 spigot was used and the distal femur was milled. I then resected the medial meniscus. We then trialed the knee and the 5 feeler gauge fit appropriately in flexion and the 2 in extension. It was just a little bit lax in flexion, but I felt 6 was too tight. The 3 spigot was selected and the distal femur was milled. We then trialed the knee and the 5 feeler gauge fit appropriately in both flexion and extension. The implants were removed. The posterior cutting guide was placed and the posterior osteophyte was removed. The reamer was used to create the defect for the anterior aspect of the femoral component. The tibial tray was pinned and then the toothbrush saw blade was used to create the keel for the tibial tray. The cement drill was used to create some holes in the distal femur for the cement interdigitation. We then trialed the knee again and the 5 implant fit appropriately. Once again, it was just a little bit lax in flexion, but I really felt like the 6 was too tight. We elected to use these implants. All trial implants were removed. I irrigated the wound extensively. We injected with a total of 100 mL of a combination of 20 mL of Exparel, 30 mL of normal saline, and 50 mL of 0.25% Marcaine with epinephrine. A single batch of [place] G cement was mixed. A left medial size B tibial tray was then cemented in place followed by a small femoral component. The 5 feeler gauge was placed. The knee was brought out into about 30 degrees short of full extension. We then removed all cement. I then waited for the cement to harden. A final cement check was then performed. I trialed the knee again. We placed the 5 insert. Attention was then drawn toward closing. The wound was irrigated with copious amounts of pulsatile lavage solution. The extensor mechanism was then closed with #1 Vicryl suture in a [id number] fashion. The subcutaneous tissues were then closed with 2-0 Dexon suture in a buried interrupted fashion. Skin was closed skin liseth. Leg was then cleaned and dried and a sterile dressing of Xeroform, 4 x 4, sterile cast padding and Percy bandage were applied. The patient then transferred to the recovery room in stable condition. The patient tolerated the procedure well with no complications. All needle and sponge counts were correct at the end of the operation. I attest to the content of the Intraoperative Record and any orders documented therein. Any exception s are noted below.
--- NOTE | 2017-06-25 09:22 | DIAGNOSTIC IMAGING REPORT ---
L KNEE 1 OR 2 VIEWS ROUTINE HISTORY: 51 years-old Female AP/LATERAL IN PACU LEFT KNEE status post left knee surgery. Degenerative joint disease. COMPARISON: Bilateral knee radiographs 04/08/2017 TECHNIQUE: 2 views of the left knee FINDINGS: Postoperative changes from medial compartment arthroplasty with midline skin liseth and expected postsurgical soft tissue swelling and deep tissue air with surgical drain in place. Alignment is satisfactory. No acute fracture or subluxation. Mild patellofemoral without significant lateral compartment osteoarthritis. IMPRESSION: Status post medial compartment arthroplasty with satisfactory alignment. The above report was generated using voice recognition software. It may contain grammatical, syntax or spelling errors. Electronically signed by: Jaison Phillips M.D. 06/25/2017 9:20 AM Dictated Date/Time: 06/25/2017 9:17 AM
--- NOTE | 2017-06-25 09:23 | Anesthesiology Progress Note ---
Anesthesia Post Op Note Date & Time Jun 25, 2017 at 09:23 Vital Signs Pain Intensity: 0 Vital Signs Past 12 Hours Date Time Temp Pulse Resp B/P (MAP) Pulse Ox O2 Delivery O2 Flow Rate FiO2 06/25/17 09:10 92 16 112/65 100 Nasal Cannula 2 06/25/17 09:00 87 16 104/63 100 Nasal Cannula 2 06/25/17 08:51 37.5 98 16 101/59 99 Oxymask 10 06/25/17 05:59 36.9 77 18 125/90 96 Room Air Notes Mental Status: alert / awake / arousable, participated in evaluation Pt Amnestic to Procedure: Yes Nausea / Vomiting: adequately controlled Pain: adequately controlled Airway Patency, RR, SpO2: stable & adequate BP & HR: stable & adequate Hydration State: stable & adequate Neuraxial Anesthesia: was administered, sensory block is resolving Anesthetic Complications: no major complications apparent
[2017-06-25] MEDS ORDERED: SUMATRIPTAN SUCCINATE 6 MG/0.5 ML VIAL SQ PRN (10:00)
[2017-06-25] MEDS: D5W AND 1/2NSS + 20MEQ KCL 1,000 ML IV SCH ×2 (10:41→20:17)
[2017-06-25] MEDS: PANTOprazole SOD 40 MG TAB PO SCH (10:41)
[2017-06-25] MEDS: DOCUSATE SODIUM 100 MG CAP PO SCH ×2 (10:41→21:29)
[2017-06-25] MEDS: KETOROLAC TROMETHAMINE 30 MG/ML VIAL IV. SCH ×3 (12:04→23:27)
[2017-06-25] MEDS: ACETAMINOPHEN 500 MG TAB PO SCH ×2 (13:25→21:29)
[2017-06-25] MEDS: CEFAZOLIN IV 1,000 MG in SYRINGE 0 ML IV SCH ×2 (13:26→21:27)
[2017-06-25] MEDS: OXYCODONE HCL IR 5 MG TAB (IMMEDIATE RELEASE) PO PRN ×2 (13:26→17:22)
--- NOTE | 2017-06-25 13:51 | PROGRESS NOTE ---
DATE: 06/25/2017 SUBJECTIVE: A 51-year-old female postop from a left partial knee replacement. She is doing pretty well. Having some pain. Block seems to have worn off. No chest pain or shortness of breath. Not feeling dizzy or lightheaded. OBJECTIVE: VITAL SIGNS: Temperature is 36.7. Vital signs stable. GENERAL: Physical examination reveals a healthy, pleasant middle-aged female. She is sitting up in bed and looks comfortable. She is taking with her friend. LUNGS: Clear to auscultation. HEART: Regular rate and rhythm. ABDOMEN: Soft, nontender, and nondistended. EXTREMITIES: Grossly neurovascularly intact except as follows: Examination of the left lower extremity reveals the leg to be well aligned. Dressing is clean, dry and intact. She can dorsiflex and plantarflex her foot appropriately. She is neurologically intact. X-RAYS: X-rays of her left knee from recovery room were reviewed. It shows a partial knee replacement. Components looked to be in good position. No signs of problems. ASSESSMENT: A 51-year-old female postop from a left partial knee replacement, doing well. Pain is reasonably well controlled. She is neurologically intact. PLAN: 1. DVT prophylaxis including thigh-high TEDs, SCDs, and aspirin for a month. 2. PT/OT. Weightbear as tolerated. Left total knee protocol. 3. Pain control. Doing well with current pain regimen. 4. IV antibiotics x24 hours. 5. Disposition: She is planning to be discharged to home and do outpatient therapy once adequately recovered.
[2017-06-25] MEDS: CHECK SCOPOLAMINE PATCH PLACEMENT SCH ×2 (15:51→23:27)
[2017-06-25] MEDS ORDERED: AMITRIPTYLINE HCL 25 MG TAB PO SCH (21:00)
[2017-06-25] MEDS ORDERED: SENNA 8.6 MG TAB PO SCH (21:00)
[2017-06-25] MEDS ORDERED: ACET-24 PO (21:05)
[2017-06-25] MEDS ORDERED: ASPEC325 PO (21:05)
[2017-06-25] MEDS ORDERED: RXC5 PO (21:05)
--- NOTE | 2017-06-25 21:08 | Discharge Instructions ---
Discharge Instructions Date of Service Jun 25, 2017. Admission Reason for Admission: Left Knee Degenerative Joint Disease Discharge Discharge Diagnosis / Problem: Left Partial Knee Replacement Discharge Goals Goal(s): Decrease discomfort, Improve function, Increase independence, Improve disease control, Therapeutic intervention Activity Recommendations Activity Limitations: per Instructions/Follow-up section Weightbearing Status: Left weightbearing . Instructions / Follow-Up Instructions / Follow-Up ACTIVITY RECOMMENDATIONS: Physical Therapy: * You will go to physical therapy three times each week for four to six weeks after your surgery in order to regain your knee range of motion and to retrain your knee to work properly. * It is just as important to make sure you are getting your knee perfectly straight as it is to regain your knee bend. * Taking a pain pill an hour before therapy can help you have a more productive and comfortable therapy session. Home Exercise: * You were shown a series of exercises (heel props, heel slides, etc.) in the hospital. Do these exercises three to four times each day including the exercises you were shown in physical therapy. Walking: * Get up and walk several times each day. For the first four weeks, try not to stand or walk for more than one hour at a time. If you do stand or walk for more than one hour, you will not hurt anything, but your knee and leg will likely swell. * As you feel comfortable, you may change from the walker or crutches to a cane and then to independent walking. MEDICATIONS: New Medicine: * You will likely be taking one or more of these medications: 1. Oxycodone - A quick and shorter-acting pain medication. Take one to two tablets every six hours to lessen your pain. 2. Aspirin - Thins your blood to lessen the chance of forming a blood clot. * The most common side effects of pain medicine and iron are nausea and constipation. If nausea or constipation is too much of a problem or if you have any questions about your new medicines or doses, call [facility] at . We will try to help you manage these issues. VERY IMPORTANT TO READ AND REVIEW" Pain: * The immediate post-operative period after knee replacement surgery is often quite painful. * You are given a prescription for pain medicine. You should take it, as directed, when you need it, especially before physical therapy and before going to bed. Pain that interferes with sleep is very common and can last several months. * You will likely need pain medicine for the first four to six weeks. It will not stop all of the pain. The pain will lessen and as you feel better, you may change to milder pain medicine such as Tylenol. * The most common side effects of pain medicine are nausea and constipation, so don't take more than you need. SPECIAL CARE INSTRUCTIONS: TEDs/Elastic Stockings: * The white elastic stockings help limit swelling and prevent blood clots from forming in your legs. The more you wear them, the more they work. * Wear them for six weeks after knee replacement surgery and four weeks after partial knee replacement. Prevention of Infection: * Take antibiotics one hour before any dental cleaning, dental work, urological procedure, gastrointestinal procedure or any invasive surgery in order to prevent your new joint from getting infected. * You may get the antibiotics from the doctor performing the procedure or you may call our office at before and we will call in a prescription to the pharmacy of your choice. Things to Watch For: * Drainage from the incision site that occurs more than one week after your surgery. * Severely increased knee/leg pain or swelling. * Increased redness at the incision site. * Fever above 102 degrees Fahrenheit. * Unusual chest pain or shortness of breath. * Unusual pain or burning with urination. Call [facility] at with any of the above problems or if you have any questions about your medicines or recovery. FOLLOW UP VISIT: Make an appointment to see your doctor for approximately two weeks after surgery for a progress check and staple removal by calling the office at . Current Hospital Diet Patient's current hospital diet: Regular Diet Discharge Diet Recommended Diet: Regular Diet Procedures Procedures Performed: Left Unicompartmental Knee Arthroplasty Pending Studies Studies pending at discharge: no Medical Emergencies . Who to Call and When: Medical Emergencies: If at any time you feel your situation is an emergency, please call [phone] immediately. . Non-Emergent Contact Non-Emergency issues call your: Surgeon . "Provider Documentation" section prepared by Baltazar Dickson. . VTE Core Measure Inpt VTE Proph given/why not?: Other Anticoagulation, T.E.D. Stockings, SCD's
[2017-06-25] MEDS: TAPENTADOL ER 50 MG TABCR PO SCH (21:27)
[2017-06-25] MEDS: ASPIRIN 325 MG ECTAB PO SCH (21:28)
[2017-06-26 03:30] VITALS: BP 121/79; PULSE 85; TEMP 36.4; O2SAT 97
[2017-06-26] MEDS: ACETAMINOPHEN 500 MG TAB PO SCH (06:00)
[2017-06-26] MEDS ORDERED: LEVOTHYROXINE 75 MCG TAB PO SCH (06:00)
[2017-06-26] MEDS: D5W AND 1/2NSS + 20MEQ KCL 1,000 ML IV SCH (06:02)
[2017-06-26] MEDS: KETOROLAC TROMETHAMINE 30 MG/ML VIAL IV. SCH ×2 (06:03→10:53)
[2017-06-26] MEDS: OXYCODONE HCL IR 5 MG TAB (IMMEDIATE RELEASE) PO PRN ×2 (06:05→10:24)
[2017-06-26 07:33] VITALS: BP 136/82; PULSE 86; TEMP 36.5; O2SAT 100
[2017-06-26] MEDS: CHECK SCOPOLAMINE PATCH PLACEMENT SCH (07:53)
[2017-06-26] MEDS: TAPENTADOL ER 50 MG TABCR PO SCH (08:57)
[2017-06-26] MEDS: PANTOprazole SOD 40 MG TAB PO SCH (08:58)
[2017-06-26] MEDS: DOCUSATE SODIUM 100 MG CAP PO SCH (08:58)
[2017-06-26] MEDS: ASPIRIN 325 MG ECTAB PO SCH (08:59)
[2017-06-26] MEDS ORDERED: CALCIUM 600MG + VIT D 400 IU TAB PO SCH (09:00)
[2017-06-26] MEDS ORDERED: MULTIVITAMIN TAB PO SCH (09:00)
[2017-06-26 09:22] VITALS: BP 136/82; PULSE 86; TEMP 36.5; O2SAT 100
--- NOTE | 2017-06-26 09:29 | PROGRESS NOTE ---
DATE: 06/26/2017 SUBJECTIVE: A 51-year-old female postop day 1 from a left partial knee replacement. She is doing well. Pain is controlled. Therapy went pretty well this morning. No chest pain or shortness of breath. Not feeling dizzy or lightheaded. OBJECTIVE: VITAL SIGNS: Temperature 36.5. Vital signs stable. GENERAL: Reveals a pleasant, middle-aged female. She is sitting up in bed, looks pretty comfortable. EXTREMITIES: Examination of the left leg reveals dressing to be clean, dry and intact. She can dorsiflex and plantarflex her foot appropriately. She has a good straight leg raise. ASSESSMENT: A 51-year-old white female postop day 1 from a left partial knee replacement, doing well. Her pain is controlled. She is neurologically intact. PLAN: 1. DVT prophylaxis including thigh-high TEDs, SCDs, and aspirin twice same. 2. PT/OT. Weight bear as tolerated. Left total knee protocol. 3. Pain control, doing pretty well with current pain regimen. 4. Disposition: Plan to discharge to home. She is going to do outpatient therapy.
--- NOTE | 2017-06-26 12:58 | Anesthesiology Progress Note ---
Anesthesia Post Op Note Date & Time Jun 26, 2017 at 12:56 Vital Signs Pain Intensity: 8.0 Vital Signs Past 12 Hours Date Time Temp Pulse Resp B/P (MAP) Pulse Ox O2 Delivery O2 Flow Rate FiO2 06/26/17 09:22 36.5 86 19 100 Room Air 06/26/17 07:33 36.5 86 19 136/82 (100) 100 Room Air 06/26/17 07:15 Room Air 06/26/17 03:30 36.4 85 16 121/79 (93) 97 Room Air Notes Mental Status: alert / awake / arousable, participated in evaluation Nausea / Vomiting: adequately controlled Pain: adequately controlled Airway Patency, RR, SpO2: stable & adequate BP & HR: stable & adequate Hydration State: stable & adequate Awake alert, ready to go home. VSS. Pain controlled with medication. No complaints with anesthesia care.
== END 2017-06-26 11:13 | disposition home or self-care (01) | DRG 470 ==
LOC: C.ACU 05:14 → C.3E 05:30 → ENRESERV 09:09
PROVIDERS: ADMIT Orthopaedic Surgery Sports Medicine; ATTEND Orthopaedic Surgery Sports Medicine
PROC: 0SRD0L9 Replacement of Left Knee Joint with Medial Unicondylar Synthetic Substitute, Cemented, Open Approach (ICD-10-PCS; principal; 2017-06-25 07:00)
DX: M17.12 Unilateral primary osteoarthritis, left knee (principal); E03.9 Hypothyroidism, unspecified; D47.3 Essential (hemorrhagic) thrombocythemia; Z79.899 Other long term (current) drug therapy; Z79.82 Long term (current) use of aspirin; Z80.3 Family history of malignant neoplasm of breast

== ENCOUNTER → 2017-07-27 | Outpatient (CLI) | payer OTHER ==
[~2017-07-27] MED LIST changes: +ACET-24 PO; +ASPEC325 PO; -ASPI81TA28 PO; -OXYC-106 PO; +RXC5 PO
[2017-07-27 13:24] LABS: BASO ABS # 0.06 K/uL (0-0.2); EOS % 3.9 %; EOS ABS # 0.24 K/uL (0-0.5); HEMATOCRIT 37.4 % (37-47); HEMOGLOBIN 12.5 g/dL (12.0-16.0); IG# 0.01 K/uL (0.00-0.02); LYMPH % 27.5 %; LYMPH ABS # 1.71 K/uL (1.2-3.4); MEAN CELL VOLUME 97.7 fL (80-100); MEAN CORPUSCULAR HEMOGLOBIN 32.6 pg (25-34); MEAN CORPUSCULAR HGB CONC 33.4 g/dl (32-36); MEAN PLATELET VOLUME 9.6 fL (7.4-10.4); MONO ABS # 0.56 K/uL (0.11-0.59); NEUT % 58.4 %; NEUT ABS # 3.64 K/uL (1.4-6.5); PLATELET COUNT 404 K/uL (130-400); RED CELL DISTRIBUTION WIDTH CV 12.8 % (11.5-14.5); RED CELL DISTRIBUTION WIDTH SD 45.7 fL (36.4-46.3); WHITE BLOOD COUNT 6.22 K/uL (4.8-10.8)
== END | disposition home or self-care (01) ==
LOC: C.LAB 12:34
PROVIDERS: ATTEND Internal Medicine Hematology & Oncology
DX: D47.3 Essential (hemorrhagic) thrombocythemia (principal)

== ENCOUNTER → 2017-10-15 | Outpatient (CLI) | payer OTHER | END | disposition home or self-care (01) | LOC: C.PAPS 11:50 | PROVIDERS: ATTEND Obstetrics & Gynecology ==

== ENCOUNTER → 2018-01-02 | Outpatient (CLI) | payer BC ==
--- NOTE | 2018-01-03 14:35 | MAMMOGRAPHY REPORT ---
BILATERAL DIGITAL SCREENING MAMMOGRAM TOMOSYNTHESIS WITH CAD: 01/02/2018 CLINICAL HISTORY: Routine screening. TECHNIQUE: The study was acquired using full field digital technology and interpreted from soft copy. Breast tomosynthesis in addition to standard 2D mammography was performed. Current study was also ev aluated with a Computer Aided Detection (CAD) system. COMPARISON: Comparison is made to exams dated: 12/27/2016 mammogram, 12/23/2015 mammogram, 12/20/2014 m ammogram, 12/15/2013 mammogram, 11/27/2012 mammogram, and 11/22/2011 mammogram - [facility]. BREAST COMPOSITION: The tissue of both breasts is extremely dense, which lowers the sensitivity of ma mmography. FINDINGS: No suspicious masses, calcifications, or areas of architectural distortion are noted in either breast . There has been no significant interval change compared to prior exams. Biopsy clips are again note d within the left upper outer breast and right upper inner breast. IMPRESSION: ACR BI-RADS CATEGORY 2: BENIGN There is no mammographic evidence of malignancy. A 1 year screening mammogram is recommended.( 019) The patient will receive written notification of the results. Some breast cancers are not detected with mammography. A negative mammographic report should not denise y biopsy if a clinically suggestive mass is present. Candice Malin M.D. ah/:01/02/2018 16:14:43 Raw Material Planner: RT Chace(Karen)(M), [facility] letter sent: Normal 1/2 BI-RADS Code: ACR BI-RADS Category 2: Benign
== END | disposition home or self-care (01) ==
LOC: C.MAMM 07:56
PROVIDERS: ATTEND Obstetrics & Gynecology
DX: Z12.31 Encounter for screening mammogram for malignant neoplasm of breast (principal)

== ENCOUNTER 2019-11-03 05:24 | Observation (INO) ==
--- NOTE | 2019-10-22 15:58 | PAT Medication Instructions ---
Medication Instructions Date of Service October 22, 2019 Home Medications Medication Instructions Recorded levothyroxine 75 mcg tablet 75 mcg PO DAILY #90 tab 03/27/19 rosuvastatin 10 mg tablet 10 mg PO DAILY #90 tab 04/22/19 lorazepam 1 mg tablet 1 mg PO DAILY PRN #90 tab 07/02/19 gnsgivchcp-cbupybkiftlci-jfmmvyzc 1 - 2 cap PO Q4H PRN #30 cap 07/03/19 50 mg-300 mg-40 mg capsule flunisolide 25 mcg (0.025 %) nasal 2 sprays INTNAS ONCE #25 ml 08/10/19 spray azithromycin 250 mg tablet See Rx Instructions PO .COMPLEX #6 08/21/19 tab amitriptyline 75 mg tablet 75 mg PO HS #90 tab 09/21/19 Wheeled Walker #1 ea 10/15/19 aspirin 81 mg tablet,delayed release 81 mg PO DAILY calcium carbonate-vitamin D3 600 mg (1,500 mg)-800 unit tablet 1 tab PO DAILY multivitamin 1 tab PO DAILY sumatriptan succinate 6 mg/0.5 mL subcutaneous solution 6 mg SQ ONCE PRN levothyroxine 75 mcg tablet 75 mcg PO DAILY rosuvastatin 10 mg tablet 10 mg PO DAILY lorazepam 1 mg tablet 1 mg PO DAILY PRN emecnrqtnw-sukkqmcoqxlub-defsyfmq 50 mg-300 mg-40 mg capsule 1 - 2 cap PO Q4H PRN flunisolide 25 mcg (0.025 %) nasal spray 2 sprays INTNAS ONCE azithromycin 250 mg tablet See Rx Instructions PO .COMPLEX amitriptyline 75 mg tablet 75 mg PO HS ASK your prescriber and surgeon aspirin 81 mg tablet,delayed release 81 mg PO DAILY DO NOT take the morning of surgery aspirin 81 mg tablet,delayed release 81 mg PO DAILY calcium carbonate-vitamin D3 600 mg (1,500 mg)-800 unit tablet 1 tab PO DAILY multivitamin 1 tab PO DAILY sumatriptan succinate 6 mg/0.5 mL subcutaneous solution 6 mg SQ ONCE PRN levothyroxine 75 mcg tablet 75 mcg PO DAILY rosuvastatin 10 mg tablet 10 mg PO DAILY lorazepam 1 mg tablet 1 mg PO DAILY PRN igcrmsivtf-whkdorlqgviho-ohtnvtio 50 mg-300 mg-40 mg capsule 1 - 2 cap PO Q4H PRN flunisolide 25 mcg (0.025 %) nasal spray 2 sprays INTNAS ONCE azithromycin 250 mg tablet See Rx Instructions PO .COMPLEX amitriptyline 75 mg tablet 75 mg PO HS Take morning of surgery With a small sip of water, OTHERWISE NOTHING TO EAT OR DRINK AFTER MIDNIGHT: Insulin Dependent Diabetic Patients * Test your blood sugar the morning of surgery * If Blood Sugar is GREATER THAN 150, take HALF of your regular dose of: * If Blood Sugar is LESS THAN 150, DO NOT TAKE ANY: Other Notes If you have any questions please call us at [phone] or [phone] or [phone] or [phone]
--- NOTE | 2019-10-27 08:44 | PAT Medication Instructions ---
Medication Instructions Date of Service October 27, 2019 Home Medications Medication Instructions Recorded lorazepam 1 mg tablet 1 mg PO DAILY PRN #90 tab 07/02/19 hervbrqloa-zkzoxmbagnils-kyrfeapa 1 - 2 cap PO Q4H PRN #30 cap 07/03/19 50 mg-300 mg-40 mg capsule amitriptyline 75 mg tablet 75 mg PO HS #90 tab 09/21/19 Wheeled Walker #1 ea 10/15/19 aspirin 81 mg tablet,delayed release 81 mg PO HS calcium carbonate-vitamin D3 600 mg (1,500 mg)-800 unit tablet 1 tab PO DAILY multivitamin 1 tab PO QAM sumatriptan succinate 6 mg/0.5 mL subcutaneous solution 6 mg SQ UD PRN lorazepam 1 mg tablet 1 mg PO DAILY PRN ofedcblxdv-usklbqbseazap-dlbzmbbd 50 mg-300 mg-40 mg capsule 1 - 2 cap PO Q4H PRN amitriptyline 75 mg tablet 75 mg PO HS levothyroxine 75 mcg PO QAM rosuvastatin 10 mg PO HS ASK your surgeon for instructions aqkcsxlxjj-jexmfdwortiaq-egmgexwx 50 mg-300 mg-40 mg capsule 1 - 2 cap PO Q4H PRN ASK your prescriber and surgeon aspirin 81 mg tablet,delayed release 81 mg PO HS DO NOT take the morning of surgery calcium carbonate-vitamin D3 600 mg (1,500 mg)-800 unit tablet 1 tab PO DAILY multivitamin 1 tab PO QAM Take morning of surgery With a small sip of water, OTHERWISE NOTHING TO EAT OR DRINK AFTER MIDNIGHT: sumatriptan succinate 6 mg/0.5 mL subcutaneous solution 6 mg SQ UD PRN (if needed) lorazepam 1 mg tablet 1 mg PO DAILY PRN (if needed) levothyroxine 75 mcg PO QAM Take evening before surgery sumatriptan succinate 6 mg/0.5 mL subcutaneous solution 6 mg SQ UD PRN (if needed) lorazepam 1 mg tablet 1 mg PO DAILY PRN (if needed) amitriptyline 75 mg tablet 75 mg PO HS rosuvastatin 10 mg PO HS Other Notes If you have any questions please call us at [phone] or [phone] or [phone] or [phone]
--- NOTE | 2019-10-27 13:07 | Anesthesiology Consultation ---
Date of Service October 27, 2019 Assessment & Plan (1) Encounter for pre-operative examination: - "Mild" thrombocytosis with fluctuating platelet levels, follows with hematology/Dr. Dawson, hematology workup unremarkable, no intervention felt necessary at this time/will continue to monitor. Hematology aware of patient's plan for future knee surgery. PLT 458 on preop labs (at baseline). Per PAT assessment on 10/26: Travel screen negative. No known COVID positive contacts. No current COVID related symptoms. Patient scheduled to have COVID-19 testing done 10/27 at [facility] [place] surgeon preop ordering. Awaiting results. - Check test AM DOS Chart Review Chart Review: Acceptable Risk for Surgery (pending COVID-19 results (scheduled M NPG 10/27)) and Patient seen in Pre Admission Testing Teaching & Discussion Pre-Anesthesia Teaching/Discussion Notes: Instructed NPO after midnight before surgery,except medications with 15 cc of water. Medication instructions provided according to the PAT guidelines. History Surgery Operation Date: 11/03/19 10:20 Proposed Procedures p Right Knee Arthroplasty Uni Compartment Versus - Baltazar Dickson MD s Total Knee Arthroplasty - Baltazar Dickson MD Height/Weight Height: 5 ft 7 in Weight: 66.9 kg Allergies Allergy/AdvReac Type Severity Reaction Status Date / Time Sulfa (Sulfonamide Allergy Mild RASH Verified 10/23/19 15:02 Antibiotics) Medications Home Medications Medication Instructions Recorded Confirmed Last Taken aspirin 81 mg tablet,delayed 81 mg PO HS 03/17/19 10/23/19 Unknown release calcium carbonate-vitamin D3 600 1 tab PO DAILY 03/17/19 10/23/19 Unknown mg (1,500 mg)-800 unit tablet multivitamin 1 tab PO QAM 03/17/19 10/23/19 Unknown sumatriptan succinate 6 mg/0.5 mL 6 mg SQ UD PRN ml 03/17/19 10/23/19 Unknown subcutaneous solution lorazepam 1 mg tablet 1 mg PO DAILY PRN #90 tab 07/02/19 10/23/19 Unknown pixykwugfg-bzaphpgsjgfax-snblxnpq 1 - 2 cap PO Q4H PRN #30 cap 07/03/19 10/23/19 Unknown 50 mg-300 mg-40 mg capsule amitriptyline 75 mg tablet 75 mg PO HS #90 tab 09/21/19 10/23/19 Unknown Wheeled Walker #1 ea 10/15/19 10/23/19 Unknown levothyroxine 75 mcg PO QAM 10/23/19 10/23/19 Unknown rosuvastatin 10 mg PO HS 10/23/19 10/23/19 Unknown Past Medical History Medical History (Updated 10/27/19 @ 14:25 by Joi lAicea) Anemia mild, follows with hematology/Dr. Dawson Depression mild Hypothyroidism Migraine Right knee DJD Thrombocytosis "mild" thrombocytosis with fluctuating platelet levels, follows with hematology/Dr. Dawson, hematology workup unremarkable, no intervention felt necessary at this time/will continue to monitor Exercise / Class Metabolic Activity II 4-5 Yardwork/Stairs/Walk up hill Past Family History Family History Aunt Brain tumor Breast cancer Mother Breast cancer Other No family history of adverse response to anesthesia Past Surgical History Surgical History History of adenoidectomy History of arthroscopy of left knee meniscus repair History of arthroscopy of right knee meniscus repair History of cervical biopsy benign History of colonoscopy History of left breast biopsy benign History of right breast biopsy benign History of root canal procedure History of tonsillectomy History of tooth extraction History of wisdom tooth extraction Status post left partial knee replacement Past Anesthesia History No Hx of Anesthesia Complications and No Family Hx of Anesthesia Complications History of PONV No Hx of PONV and No Hx of Motion Sickness Social History Smoking Status: Never smoker Do You Dip or Chew Tobacco: No Hx Alcohol Use: Yes Alcohol type: wine alcohol intake frequency: a few times a week Hx Substance Use: No substance use type: does not use Review of Systems Patient denies chest pain, shortness of breath, dyspnea on exertion, fever, chills, cough, wheezing, palpitations. Physical Exam Vital Signs VITALS BP 140/90 P 81 TEMP 98.3 SP02 95%RA RESP 18 PHYSICAL Full neck and c-spine range of motion. Full TMJ range of motion. TMD 3 finger breaths Mallampati Score 1 Dentition: missing lower left molar Lungs: clear throughout to auscultation Cardiac: regular rate and rhythm, no murmurs noted Spine: normal Carotid arteries: negative bruit Extremities: no edema Testing Laboratory Results 10/27/19 13:27 10/27/19 13:27 PT 10.3 Seconds (9.0-12.0) 10/27/19 13:27 INR 1.0 (0.9-1.1) 10/27/19 13:27 APTT 25.8 Seconds (21.0-31.0) 10/27/19 13:27 Blood Type A Positive 10/27/19 13:27 Antibody Screen NEGATIVE 10/27/19 13:27 Electrocardiogram Date: 10/27/19 NSR at 74bpm. unconfirmed EKG report* Chest X-Ray Date: 10/27/19 Findings: + NAD
--- NOTE | 2019-10-27 13:49 | XRay Report ---
XR chest Pre-admission PA/Lat HISTORY: Preop. COMPARISON: Chest 09/10/2014. FINDINGS: The lungs are clear. Cardiac silhouette is normal in size. No pleural effusions. No pneumot horax. IMPRESSION: No acute process. ACT 112: Negative or not required by law. Electronically signed by: Paolo Garza M.D. 10/27/2019 1:47 PM
[2019-10-27 13:54] LABS: Basophils # (auto) 0.03 K/uL (0-0.2); Basophils % (auto) 0.6 %; Eosinophils # (auto) 0.11 K/uL (0-0.5); Eosinophils % (auto) 2.3 %; Hemoglobin 11.2 g/dL (12.0-16.0); Immature Granulocytes # (auto) 0.01 K/uL (0.00-0.02); Immature Granulocytes % (auto) 0.2 %; Lymphocytes # (auto) 1.28 K/uL (1.2-3.4); Lymphocytes % (auto) 27.3 %; Mean Corpuscular Hemoglobin 31.5 pg (25-34); Mean Corpuscular Hgb Conc 32.9 g/dL (32-36); Mean Corpuscular Volume 95.8 fL (80-100); Mean Platelet Volume 9.2 fL (7.4-10.4); Monocytes # (auto) 0.51 K/uL (0.11-0.59); Monocytes % (auto) 10.9 %; Neutrophils # (auto) 2.75 K/uL (1.4-6.5); Neutrophils % (auto) 58.7 %; Platelet Count 458 K/uL (130-400); RDW Coefficient of Variation 12.9 % (11.5-14.5); RDW Standard Deviation 45.4 fL (36.4-46.3); Red Blood Count 3.55 M/uL (4.2-5.4); White Blood Count 4.69 K/uL (4.8-10.8)
[2019-10-27 14:04] LABS: BUN Creatinine Ratio 17.5 (10-20); Calcium 9.4 mg/dl (8.5-10.1); Creatinine Clr Calc Pharmacy 84.7 ml/min; Est GFR (African American) 107.5; Est GFR (Non-African American) 92.7; Potassium 3.9 mmol/L (3.5-5.1)
[2019-10-27 14:05] LABS: C Reactive Protein 0.48 mg/dl (0-0.29)
[2019-10-27 14:13] LABS: Partial Thromboplastin Ratio 0.9; Partial Thromboplastin Time 25.8 Seconds (21.0-31.0); Prothrombin Time 10.3 Seconds (9.0-12.0)
--- NOTE | 2019-10-27 16:13 | Electrocardiogram Report ---
Test Reason : Blood Pressure : / mmHG Vent. Rate : 074 BPM Atrial Rate : 074 BPM P-R Int : 130 ms QRS Dur : 098 ms QT Int : 396 ms P-R-T Axes : 006 082 074 degrees QTc Int : 439 ms Normal sinus rhythm Normal ECG When compared with ECG of 17-JUL-2016 10:59, No significant change was found Confirmed by Epifanio Meier ([id number]) on 10/27/2019 4:12:51 PM Referred By: Baltazar Dickosn Confirmed By:Epifanio Meier
--- NOTE | 2019-10-31 10:16 | History and Physical Report ---
DATE OF ADMISSION: 11/03/2019 CHIEF COMPLAINT: Persistent right knee pain and discomfort. HISTORY OF PRESENT ILLNESS: The patient is a 54-year-old very active female who presents for surgical treatment of her right knee. She has got a long history of knee problems and had both knees scoped several years ago. She had a right knee scoped a little over 3 years ago and did well for the first year or two. Over the past year, she has developed increased pain and discomfort in her knee. It localizes mostly in the medial side of her knee. She has been through extensive conservative treatment including steroid shots and viscosupplementation, which have become less successful over time. She would like to have her right knee fixed. Symptoms localized in the medial side of her knee. She had a left partial knee replacement done about 2 years ago and has done pretty well from this. We had scheduled for surgery previously, but she canceled for some personal reasons and would now like to reschedule. PAST MEDICAL HISTORY: Past medical history is significant for: 1. Hypertension. 2. Elevated platelet count. 3. Elevated cholesterol. 4. Hypothyroidism. 5. Migraine headaches. PAST SURGICAL HISTORY: Previous surgeries include: 1. Bilateral knee arthroscopies with the right one done on 07/25/2016. 2. Left partial knee replacement done 06/25/2017. 3. Breast biopsy. 4. Colonoscopy. 5. Tonsillectomy. ALLERGIES: TO PENICILLIN WHICH CAUSES A RASH AND SULFA WHICH CAUSES A RASH. CURRENT MEDICINES: Include: 1. Amitriptyline 75 mg at nighttime. 2. Aspirin 81 mg a day. 3. Azithromycin. 4. Calcium with D. 5. Nasal spray. 6. Levothyroxine. 7. Lorazepam. 8. Multivitamin. 9. Losartan. 10. Imitrex. SOCIAL HISTORY: A 54-year-old female. She lives alone. She works in [employer]. Does not smoke. Occasional alcohol intake. FAMILY HISTORY: Noncontributory. REVIEW OF SYSTEMS: Negative for diabetes, neurologic problem, vascular problems or bleeding disorders. No chest pain or shortness of breath. No history of DVT or PE. PHYSICAL EXAMINATION: GENERAL: Shows a pleasant, middle-aged female, looks to be in excellent health. HEENT: Benign. NECK: Supple. No lymphadenopathy. LUNGS: Clear to auscultation. HEART: Has a regular rate and rhythm. ABDOMEN: Soft, nontender, nondistended. EXTREMITIES: Grossly neurovascularly intact except as follows. Examination of the right knee reveals the patient walks with just a slight bit of limp. She has got slight varus alignment to her knee. She has got well-healed portal sites around her knee. She does have a small knee effusion. She is tender over the medial joint line. Range of motion is near full extension to 130 degrees of flexion. There is no instability. ACL appears intact. No varus or valgus instability. Debra's does cause pain, but no mechanical symptoms. She has no pain with hip motion. X-RAYS: X-rays of the right knee from previously reviewed. It shows moderate to advanced medial compartment DJD. She has got near complete loss of her medial joint space. She has some slight cystic changes on the medial side with some small osteophytes medially. The lateral compartment looks well preserved. Minimal patellofemoral disease. ASSESSMENT: A 54-year-old female with history of knee problems for many years status post right knee arthroscopy 3 years ago with persistent and progressive medial compartment degenerative joint disease. She has failed conservative treatment and would like to have her right knee fixed. She did have her left partial knee replacement done about 2 years ago and has done pretty well from this and would like to proceed with that option if possible. PLAN: We are going to take her to the Operating Room and do a right partial knee replacement. If we get in there and it is too bad, we will do a full knee replacement. The risks and benefits of this procedure were explained to the patient include but not limited to DVT, PE, , infection, neurovascular injury, progression of her knee arthritis, dislocation, persistent pain, incomplete relief of pain, need for blood transfusion, etc. The patient understands and desires to proceed. Informed consent was obtained. As far as discharge plans, she is planning to be discharged to home. She will likely do some home health versus outpatient therapy. We will use aspirin for DVT prophylaxis especially considering her elevated platelets.
[2019-11-03] MEDS ORDERED: SCOPOLAMINE 1.5 MG TDSY TD SCH (06:00)
[2019-11-03] MEDS ORDERED: CEFAZOLIN 2000MG 2,000 MG/15 ML SYR IV SCH (06:00)
[2019-11-03] MEDS ORDERED: TRANEXAMIC ACID 1,000 MG **IV Intra-op IV SCH (06:00)
[2019-11-03] MEDS ORDERED: GABAPENTIN 900 MG DOSE PO SCH (06:00)
[2019-11-03] MEDS ORDERED: ACETAMINOPHEN 500 MG TAB PO SCH (06:00)
[2019-11-03] MEDS ORDERED: METOCLOPRAMIDE HCL 10 MG TABLET PO SCH (06:00)
[2019-11-03] MEDS ORDERED: LR 60ML/HR IV SCH (06:00)
[2019-11-03] MEDS ORDERED: FAMOTIDINE 20 MG TAB PO SCH (06:00)
[2019-11-03] MEDS ORDERED: BUPIVACAINE LIPOSOME/PF 266 MG, BUPIVACAINE/EPINEPHRINE 50 ML, SODIUM CHLORIDE 0.9% 30 ... INFIL SCH (06:00)
[2019-11-03] MEDS ORDERED: MIDAZOLAM HCL 1 MG/ML 2ML VIAL ONE (06:24)
[2019-11-03] MEDS ORDERED: fentaNYL citrate 100 MCG/2 ML VIAL ONE (06:24)
[2019-11-03] MEDS ORDERED: BUPIVACAINE 0.5 % 5 MG/1 ML PF 10ML VIAL ONE (06:36)
--- NOTE | 2019-11-03 06:46 | History & Physical Bridge Note ---
Date of Service November 03, 2019 History & Physical Bridge Note I have examined the patient, reviewed the History & Physical and in the interval since the performance of the History & Physical I have noted the following changes of clinical significance: no changes noted
[2019-11-03] MEDS ORDERED: BUPIVACAINE/EPINEPHRINE 0.25% 1:200,000 30 ML VIAL ONE (06:51)
[2019-11-03] MEDS ORDERED: SODIUM CHLORIDE 0.9% PF 50 ML VIAL ONE (06:51)
[2019-11-03] MEDS ORDERED: BACITRACIN INJ 50,000 UNIT VIAL ONE (06:52)
[2019-11-03] MEDS ORDERED: BUPIVACAINE LIPOSOME 1.3% 266 MG/20 ML VIAL ONE (06:52)
[2019-11-03] MEDS ORDERED: PROPOFOL IV EMULSION 10 MG/ML 20 ML VIAL IV ONE (07:02)
[2019-11-03] MEDS ORDERED: ATROPINE SULFATE 0.1 MG/ML 10ML SYR IV PRN (07:06)
[2019-11-03] MEDS ORDERED: fentaNYL citrate 100 MCG/2 ML VIAL IV PRN (07:06)
[2019-11-03] MEDS ORDERED: ePHEDrine sulfate 50 MG/ML AMP IV PRN (07:06)
[2019-11-03] MEDS ORDERED: ONDANSETRON INJ 2 MG/ML 2 ML VIAL IV PRN ×2 (07:06→09:42)
--- NOTE | 2019-11-03 08:38 | Post Operative Brief Note ---
PG Immediate Post Op with CF Date of Surgery November 03, 2019 Pre & Post Diagnosis Operation Date: 11/03/19 07:00 Pre-Op Diagnosis: Right Knee Advanced Medial Compartmental Degenerative Joint Disease Post-Op Diagnosis: Right Knee Advanced Medial Compartmental Degenerative Joint Disease I identified the patient and participated in the time-out.: Yes Procedure Operation Date: 11/03/19 07:00 Actual Procedures p Right Knee Unicompartmental Arthroplasty(Right) - Baltazar Dickson MD Surgeon Baltazar Dickson MD Proof Technician Shari, PAC Estimated Blood Loss 25 Findings Consistent with Post-Op Diagnosis Fluids 800 cc Specimens Specimen Description: A. Right Knee Bone and Tissue Drains San Catheter Anesthesia Type Spinal MAC Complications none Disposition Accompanied Patient To Recovery: No Disposition: Recovery Room
--- NOTE | 2019-11-03 08:51 | Operative Report ---
Post Operative Report Pre & Post Diagnosis Operation Date: 11/03/19 07:00 Pre-Op Diagnosis: Right Knee Advanced Medial Compartmental Degenerative Joint Disease Post-Op Diagnosis: Right Knee Advanced Medial Compartmental Degenerative Joint Disease I identified the patient and participated in the time-out.: Yes Procedure Operation Date: 11/03/19 07:00 Actual Procedures p Right Knee Unicompartmental Arthroplasty(Right) - Baltazar Dickson MD Surgeon Baltazar Dickson MD Horse Race Timer Shari, SYL Estimated Blood Loss 25 Findings Consistent with Post-Op Diagnosis Operative findings revealed spotty and moderate to grade 4 benj-mj-qfzm disease of the medial femoral condyle medial tibial plateau. The lateral compartment and patellofemoral compartment were well preserved. Fluids 800 cc. Specimens Right knee sent for pathology. Drains None. Anesthesia Type Spinal MAC Complications none Disposition Accompanied Patient To Recovery: No Disposition: Recovery Room Indications Patient is a 54-year-old very active female is had a long history of bilateral knee pain discomfort. She underwent a left partial knee replacement 2 years ago and is done pretty well from this. She had a right knee scoped about 3 years ago which vies him temporarily for about a year or 2. Over the past year she is developed increased pain discomfort in her right knee unresponsive conservative care. X-rays show progressive right knee medial compartment arthritis. She elected proceed with surgical treatment. Description of Procedure Operative implants consist of: 1. Biomet Maxwell size small femoral component. 2. Biomet Maxwell right medial size B tibial tray. 3. 4 mm mobile-bearing polyethylene insert. Patient was taken to the operating room identified and placed on the operating table supine position protectors were properly padded. IV antibiotics were tried by anesthesia team. A spinal anesthetic and abductor canal block had provided holding area. A San catheter was placed in sterile fashion. A right thigh turn was then placed in the right lower extremities and prepped and draped in usual sterile fashion. The right leg was elevated exsanguinated with use of an Esmarch and turns placed at 300 mmHg. An anterior process of the right knee was then performed to a longitudinal incision beginning at the superior pole of patella and extending just medial to the tibial tubercle. Sharp dissection was gone through subcutaneous tissue down to the extensor mechanism. Subcutaneous tissues were mobilized circumferentially. A medial parapatellar arthrotomy incision was made. Some slight subperiosteal dissection was carried out medially taking great care to protect the MCL ligament. The fat pad was resected. I then examined the knee and the lateral compartment and patellofemoral compartments are well preserved. Her ACL was intact. We elected proceed with a partial knee replacement. The osteotome was used to remove some osteophytes from the intercondylar notch area. The femur was then sized to a size small. A small spoon was then placed and attached to the tibial external alignment jig. The tibial jig was pinned in position and the proximal tibial cut was made. The tibia was sized to a size B. Attention drawn the femur. The distal femur was entered with a sharp drill. The intramedullary brock was placed. A small femoral template was placed and attached to the IM guide and the holes were drilled for the femoral component. The posterior cutting guide was placed and the posterior cut was made. The 0 spigot was placed in the distal femur was milled. I then resected the medial meniscus. I then trialed t he knee and the 4 feeler gauge fit appropriately in flexion and the one in extension. We then placed a 3 spigot milled the distal femur. We then trialed the knee again and the 4 feeler gauge fit appropriately in flexion extension. We elect to place these implants. All trial implants were removed. The posterior osteophyte cutting guide was used removed with any posterior osteophyte. The milling device was used to mill the anterior aspect of the femur for the femoral component. The tibial tray was pinned in position. The toothbrush blade saw was used to create the keel for the tibial tray. We then placed the trial implants again and the 4 implant fit appropriately. We elect to place these implants. We did use the cement drilled a hole created some cement holes in the distal femur for interdigitation. All trial implants were removed. Wounds irrigated cups ounce pulsatile lavage solution. A single batch Pal[place]os G cement was mixed. A Biomet Maxwell right medial size B tibial tray was then cemented in position. All extraneous cement was removed. A small femoral component was cemented and then the 4 feeler gauge was then placed in the knee was brought out of 30 degrees short of full extension. We held this in position until the cement hardened. We then trialed the knee one final time and the 4 implant fit appropriately. We then placed a 4 permanent implant. The knee was irrigated extensively. I did inject locally with 100 cc of combination of 20 cc of Exparel, 30 cc normal saline, 50 cc of quarter percent Marcaine with epinephrine. Patient did receive 1 g tranexamic acid per the tourniquet was then let down for final turn time 61 minutes but hemostasis assured use electrocautery. The wounds once again irrigated. Extensor mechanism then closed with #1 Vicryl suture in a pzenso-[id number] fashion. Extensor mechanism checked found be intact the subcutaneous tissue then closed with 2 Dexon suture buried nerve fascia skin was closed skin liseth. Leg was then cleaned dried a sterile dressing was Xeroform, 4 x 4's, sterile cast padding, Percy bandage were applied. Patient transferred to the recovery room in stable condition. Patient tolerated procedure well no complications. I attest to the content of the Intraoperative Record and any orders documented therein. Any exceptions are noted below.
--- NOTE | 2019-11-03 09:05 | Anesthesiology Progress Note ---
Date of Service November 03, 2019 Anesthesia Post Procedure Vital Signs Vital Signs: Temp Pulse Pulse Resp BP BP Pulse Ox 11/03/19 08:59 97.3 F L 70 14 122/71 94 11/03/19 08:50 72 17 116/77 95 11/03/19 08:42 96.8 F L 94 H 19 130/81 99 11/03/19 05:57 98.4 F 78 20 125/79 100 Transfer of Care Handoff Completed per policy Notes Mental Status: alert / awake / arousable and participated in evaluation Patient Amnestic to Procedure: Yes Nausea / Vomiting: adequately controlled Pain: adequately controlled Airway Patency, RR, SpO2: stable & adequate BP & HR: stable & adequate Hydration State: stable & adequate Neuraxial Anesthesia: was administered and sensory block is resolving Anesthetic Complications: no major complications apparent and Pt Satisfied with anesthetic care
--- NOTE | 2019-11-03 09:16 | XRay Report ---
XR knee RT 1 or 2V routine CLINICAL HISTORY: Surgical Post Op COMPARISON: 04/22/2014 DISCUSSION: The patient is status post a medial joint compartment arthroplasty. There are overlying s kin liseth. There is gas present within the soft tissues. No complicating features are evident. IMPRESSION: Postsurgical changes of a medial joint compartment arthroplasty ACT 112: Negative or not required by law. Electronically signed by: Robe Nguyen M.D. 11/03/2019 9:15 AM
[2019-11-03] MEDS ORDERED: [UNRECOGNIZED DRUG - OTHER] SCH (09:42)
[2019-11-03] MEDS ORDERED: SODIUM CHLORIDE 0.9% 1000ML 1,000 ML IV SCH (09:42)
[2019-11-03] MEDS ORDERED: bisacodyL 10 MG SUPP PR PRN (09:42)
[2019-11-03] MEDS ORDERED: MULTIVITAMIN TAB PO SCH (09:42)
[2019-11-03] MEDS ORDERED: ALUMINUM/MAGNESIUM SUSP 30 ML UDC PO PRN (09:42)
[2019-11-03] MEDS ORDERED: BUTALBITAL/ACETAMIN/CAFFEINE TAB PO PRN (09:42)
[2019-11-03] MEDS ORDERED: METOCLOPRAMIDE HCL INJ 5 MG/ML 2 ML VIAL IV PRN (09:42)
[2019-11-03] MEDS ORDERED: SUMAtriptan succinate 6 MG/0.5 ML VIAL SQ PRN (09:42)
[2019-11-03] MEDS ORDERED: MAGNESIUM HYDROXIDE SUSP 30 ML UDC PO PRN (09:42)
[2019-11-03] MEDS ORDERED: NALOXONE HCL 0.4 MG/1 ML VIAL/CARP IV PRN (09:42)
[2019-11-03] MEDS ORDERED: LORazepam 1 MG TAB PO PRN (10:12)
[2019-11-03] MEDS: HYDROmorphone INJ 0.5 MG/0.5 ML SYR IV PRN ×3 (11:18→20:08)
[2019-11-03] MEDS: KETOROLAC 30 MG/ML VIAL IV SCH ×3 (11:19→22:32)
[2019-11-03] MEDS: DOCUSATE SODIUM 100 MG CAP PO SCH ×2 (11:21→20:32)
[2019-11-03] MEDS: MULTIVITAMIN TAB PO SCH (11:21)
[2019-11-03] MEDS: LEVOTHYROXINE SODIUM 75 MCG TABLET PO SCH (11:21)
[2019-11-03] MEDS: CALCIUM 600MG + VIT D 400 IU TAB PO SCH (11:21)
[2019-11-03] MEDS: ASPIRIN 81 MG ECTAB PO SCH ×2 (11:21→20:32)
[2019-11-03] MEDS: TRAMADOL HCL 50 MG TABLET PO PRN ×2 (12:20→18:26)
[2019-11-03] MEDS: ACETAMINOPHEN 500 MG TAB PO SCH ×2 (14:03→22:32)
[2019-11-03] MEDS: CEFAZOLIN 1000MG 1,000 MG/7.5 ML SYR IV SCH ×2 (14:04→22:32)
[2019-11-03] MEDS: CHECK SCOPOLAMINE PATCH PLACEMENT SCH ×2 (14:15→23:28)
--- NOTE | 2019-11-03 15:46 | Progress Notes ---
DATE: 11/03/2019 SUBJECTIVE: A 54-year-old female postop from a right partial knee replacement. She is doing pretty well. Pain is manageable. No chest pain or shortness of breath. Not feeling dizzy or lightheaded. OBJECTIVE: VITAL SIGNS: Temperature is 36.8. Vital signs are stable. GENERAL: Shows a pleasant, middle-aged female. She is lying in bed, looks pretty comfortable. LUNGS: Clear to auscultation. HEART: Regular rate and rhythm. ABDOMEN: Soft, nontender, nondistended. EXTREMITIES: Grossly neurovascularly intact except as follows: Examination of the right lower extremity reveals the leg to be well aligned. Dressing is clean, dry and intact. She can dorsiflex and plantarflex her foot appropriately. She is neurologically intact. X-RAYS: X-rays of the right knee from recovery room were reviewed. She has a right cemented partial knee replacement. Components looked to be in good position. Slightly rotated film. ASSESSMENT: A 54-year-old female postoperative from right knee replacement, doing well. Pain is controlled. She is neurologically intact. PLAN: 1. DVT prophylaxis including thigh-high TEDs, SCDs, and aspirin twice a day. 2. PT/OT. Weight bear as tolerated. Right total knee protocol. 3. Pain control, doing pretty well with current pain regimen. We will try to manage pain with Tylenol, Toradol, and oxycodone as needed. 4. IV antibiotics x24 hours. 5. Disposition: Plan is to discharge to home likely with some home health once adequately recovered and medically stable.
[2019-11-03] MEDS: ASCORBIC ACID 500 MG TAB PO SCH (17:09)
[2019-11-03] MEDS ORDERED: OXYCODONE HCL IR 5 MG TAB (IMMEDIATE RELEASE) PO PRN (20:11)
[2019-11-03] MEDS ORDERED: AMITRIPTYLINE HCL 25 MG TAB PO SCH (21:00)
[2019-11-03] MEDS ORDERED: SENNA 8.6 MG TAB PO SCH (21:00)
[2019-11-03] MEDS ORDERED: ROSUVASTATIN CALCIUM 10 MG TAB PO SCH (21:00)
[2019-11-04] MEDS: LEVOTHYROXINE SODIUM 75 MCG TABLET PO SCH (05:47)
[2019-11-04] MEDS: ACETAMINOPHEN 500 MG TAB PO SCH (05:47)
[2019-11-04] MEDS: KETOROLAC 30 MG/ML VIAL IV SCH ×2 (05:47→10:18)
[2019-11-04] MEDS: DOCUSATE SODIUM 100 MG CAP PO SCH (07:37)
[2019-11-04] MEDS: MULTIVITAMIN TAB PO SCH (07:37)
[2019-11-04] MEDS: ASPIRIN 81 MG ECTAB PO SCH (07:37)
[2019-11-04] MEDS: CHECK SCOPOLAMINE PATCH PLACEMENT SCH (07:38)
[2019-11-04] MEDS: CALCIUM 600MG + VIT D 400 IU TAB PO SCH (07:38)
[2019-11-04] MEDS: ASCORBIC ACID 500 MG TAB PO SCH (07:38)
--- NOTE | 2019-11-04 11:54 | Progress Notes ---
DATE: 11/04/2019 SUBJECTIVE: A 54-year-old white female postop day 1 from a right partial knee replacement for DJD. She is doing pretty well. Therapy went well. Pain is controlled. No chest pain or shortness of breath. Not feeling dizzy or lightheaded. Anxious to get home. OBJECTIVE: VITAL SIGNS: Temperature 36.5. Vital signs stable. GENERAL: Reveals a pleasant, middle-aged female. She is sitting up in bed, looks pretty comfortable. EXTREMITIES: Examination of the right leg reveals the leg to be well aligned. Dressing is clean, dry and intact. She can do a good straight leg raise. Range of motion 0-90 degrees. She can dorsiflex and plantarflex her foot appropriately. ASSESSMENT: A 54-year-old female postop day 1 from right partial knee replacement, doing pretty well. Pain is controlled. She is neurologically intact. PLAN: 1. DVT prophylaxis including thigh-high TEDs, SCDs, and aspirin twice a day. 2. PT/OT. Weight bear as tolerated. Right total knee protocol. 3. Pain control, doing pretty well with current pain regimen. 4. Disposition: Plan to discharge to home with some home health later today.
--- NOTE | 2019-11-11 13:49 | Discharge Summary ---
Date of Service November 11, 2019 Admission HPI Per Admitting Provider Documented in the H&P Admission Exam (Per Admitting) Constitutional Documented in the H&P Discharge Data Consultations 11/03/19 09:42 Consult Case Management - Discharge Planning Routine Procedures Performed Operation Date: 11/03/19 07:00 Actual Procedures p Right Knee Unicompartmental Arthroplasty(Right) - Baltazar Dickson MD Hospital Course (1) Status post right partial knee replacement: 54-year-old female admitted on 11/03/2019 underwent partial knee replacement. She tolerated the procedure well. There were no complications. She is transferred to the PACU postoperatively and later the orthopedic for further care. She was given Ancef for antibiotic prophylaxis. She was also g iven DILLON stockings, SCDs, aspirin for DVT prophylaxis. Vital signs were monitored during hospital stay remained stable. She did not require blood transfusions. There were no complications. Postoperative day 1 she was tolerating a regular diet pain is controlled with oral pain medicine she is participating in physical therapy. On postop day 1 she was discharged home and set up with home health services. She is given printed discharge instructions as well as new prescriptions for extra Tylenol, aspirin, oxycodone. Continue her home medications. Continue physical therapy. DILLON stockings. She is weightbearing as tolerated. Follow-up in approximately 2 weeks or sooner if there are any problems or concerns. Coding Level of Care Code None Diagnoses Status post right partial knee replacement Z96.651
== END 2019-11-04 12:11 | disposition home health service (06) ==
LOC: ASU 05:24 → 3E 05:24

== ENCOUNTER 2020-08-29 08:32 | Observation (INO) ==
--- NOTE | 2020-08-24 09:28 | Anesthesiology Consultation ---
Date of Service August 24, 2020 Assessment & Plan (1) Encounter for pre-operative examination: - COVID screening: Per assessment on 07/27: Travel screen negative, no known COVID-19 positive contacts or current COVID-19 related symptoms. Patient was personally COVID positive 05/05/20 ([facility]) > symptoms at time of fatigue, achiness, mild cough, nasal congestion, decreased taste/smell > recovered at home/symptoms resolved. Patient again tested COVID positive 08/16 ([facility]) and subsequently tested negative next day (08/17 at [facility]). Patient asymptomatic and DOS will be > 11 days since most recent COVID positive testing. Okay to proceed per protocol. - S/P Right TKA: 11/03/19: SAB x 1 attempt at L4-L5 + PNB at [facility] Chart Review Chart Review: Acceptable Risk for Surgery and Patient NOT seen in Pre Admission Testing History Surgery Operation Date: 08/29/20 10:55 Proposed Procedures p Right Unicompartmental Revision to Total Knee Replacement - Baltazar Dickson MD Height/Weight Height: 5 ft 7 in Weight: 65.771 kg Allergies Allergy/AdvReac Type Severity Reaction Status Date / Time Sulfa (Sulfonamide Allergy Mild Rash Verified 08/24/20 09:17 Antibiotics) Medications Home Medications Medication Instructions Recorded Confirmed Last Taken calcium carbonate-vitamin D3 600 1 tab PO QAM 03/17/19 07/27/20 11/02/19 08:00 mg (1,500 mg)-800 unit tablet multivitamin 1 tab PO QAM 03/17/19 07/27/20 11/02/19 08:00 sumatriptan succinate 6 mg/0.5 mL 6 mg SQ UD PRN ml 03/17/19 07/27/20 1 Year Ago subcutaneous solution ~11/02/18 sfflheurlc-opmyltqpfvybw-emmfhvbe 1 - 2 cap PO Q4H PRN #30 cap 07/03/19 07/27/20 3 Months Ago 50 mg-300 mg-40 mg capsule ~08/03/19 amitriptyline 75 mg tablet 75 mg PO HS #90 tab 09/21/19 07/27/20 11/02/19 22:00 amoxicillin 500 mg tablet 2,000 mg PO ONCE #4 tab 12/17/19 07/27/20 Unknown aspirin 81 mg tablet,delayed 81 mg PO HS 03/31/20 07/27/20 Unknown release levothyroxine 75 mcg tablet 75 mcg PO QAM #90 tab 03/31/20 07/27/20 Unknown cyclobenzaprine 10 mg PO TID PRN #20 tab 05/16/20 07/27/20 Unknown Marijuana 1 dose INHALATION [id number] PRN 07/27/20 07/27/20 Unknown cholecalciferol (vitamin D3) 25 mcg PO QAM 07/27/20 07/27/20 Unknown ibuprofen 600 mg PO Q6H PRN 07/27/20 07/27/20 Unknown lorazepam 1 mg PO HS PRN 07/27/20 07/27/20 Unknown naproxen sodium [Aleve] 220 mg PO Q8H PRN 07/27/20 07/27/20 Unknown rosuvastatin 10 mg PO HS 07/27/20 07/27/20 Unknown Past Medical History Medical History Anemia mild, discharged from hematology (Dr. Dawson) Chronic back pain LBP/neck pain > denies ROM limitations Depression Mild Depression History of COVID-19 COVID positive 05/05/20 ([facility]) > symptoms at time of fatigue, achiness, mild cough, nasal congestion, decreased taste/smell > recovered at home/symptoms resolved. Again tested positive 08/16 (and negative 08/17) = asymptomatic Hyperlipidemia Hypothyroidism Intractable migraine Migraine Right knee DJD Temporomandibular joint disorder Left side clicking, no locking Thrombocytosis "mild" thrombocytosis with fluctuating platelet levels, hematology workup unremarkable (Dr. Dawson), felt no further workup or intervention needed and to be monitored by PCP in the future Past Family History Family History Aunt Breast cancer Mother Breast cancer Stroke Other No family history of adverse response to anesthesia Denies family history of Ovarian cancer Prostate cancer Diabetes Myocardial infarction Lung cancer Colorectal cancer Hypertension Past Surgical History Surgical History History of adenoidectomy History of arthroscopy of left knee meniscus repair History of arthroscopy of right knee meniscus repair History of colonoscopy History of colposcopy with cervical biopsy History of left breast biopsy benign History of right breast biopsy benign History of root canal procedure History of tonsillectomy History of tooth extraction History of total knee replacement Right TKA: 11/03/19: SAB x 1 attempt at L4-L5 + PNB at [facility] History of wisdom tooth extraction Status post left partial knee replacement Social History Smoking Status: Never smoker Do You Dip or Chew Tobacco: No Hx Alcohol Use: Yes Alcohol type: wine alcohol intake frequency: a few times a week Hx Substance Use: Yes substance use type: marijuana Substance Use Type Other:: MEDICAL MARIJUANA CARD-INHALATION 2-3 X A WEEK Testing Laboratory Results Blood Type A Positive 08/01/20 08:32 Antibody Screen NEGATIVE 08/01/20 08:32 08/23/20 WBC 5.33 H/H 12.3/36.4 PLATELETS 501 SODIUM 138 POTASSIUM 4.1 CHLORIDE 105 CO2 29 BUN 12 CREATININE 0.77 GLUCOSE 104 PT 9.8 INR 1.0 Electrocardiogram Date: 10/27/19 Findings: + NSR @ (74) Chest X-Ray Date: 10/27/19 Findings: + NAD
[~2020-08-29 08:32] MED LIST changes: -ACET-24 PO; +ACETAMINOPHEN 500 MG TAB PO SCH; -AMIT75TA2 PO; -ASPEC325 PO; -ATV/1 PO; +BUPIVACAINE 0.25% 30 ML VIAL ONE; +BUPIVACAINE 0.5 % 5 MG/1 ML PF 10ML VIAL ONE; +BUPIVACAINE LIPOSOME/PF 266 MG, BUPIVACAINE/EPINEPHRINE 50 ML, SODIUM CHLORIDE 0.9% 30 ... INFIL SCH; -CALC600T9 PO; +FAMOTIDINE 20 MG TAB PO SCH; -FRCT/ PO; +GABAPENTIN 900 MG DOSE PO SCH; -GLUC10007 PO; -LEVO75TA PO; +LR 500ML BOLUS, THEN 15ML/HR IV SCH; +LR 60ML/HR IV SCH; +METOCLOPRAMIDE HCL 10 MG TABLET PO SCH; -MULT-1027 PO; -RXC5 PO; -SUMA6KIT IM; +Scopolamine 1 MG TDSY TD SCH; +TRANEXAMIC ACID 1,000 MG **IV Intra-op IV SCH; +ceFAZolin 2000MG 2,000 MG/15 ML SYR IV SCH
--- NOTE | 2020-08-29 09:05 | History & Physical Bridge Note ---
Date of Service August 29, 2020 History & Physical Bridge Note I have examined the patient, reviewed the History & Physical and in the interval since the performance of the History & Physical I have noted the following changes of clinical significance: no changes noted
[2020-08-29] MEDS ORDERED: fentaNYL citrate 100 MCG/2 ML VIAL IV PRN (09:58)
[2020-08-29] MEDS ORDERED: ATROPINE SULFATE 0.1 MG/ML 10ML SYR IV PRN (09:58)
[2020-08-29] MEDS ORDERED: ONDANSETRON INJ 2 MG/ML 2 ML VIAL IV PRN ×2 (09:58→15:41)
[2020-08-29] MEDS ORDERED: ePHEDrine sulfate 50 MG/ML AMP IV PRN (09:58)
[2020-08-29] MEDS ORDERED: LIDOCAINE HCL 2% 2 ML VIAL/AMP(20MG/ML) INFIL ONE (10:11)
[2020-08-29] MEDS ORDERED: MIDAZOLAM HCL 1 MG/ML 2ML VIAL ONE ×3 (10:11→10:31)
[2020-08-29] MEDS ORDERED: PROPOFOL IV EMULSION 10 MG/ML 20 ML VIAL IV ONE (10:11)
[2020-08-29] MEDS ORDERED: KETAMINE 50 MG/5 ML SYRINGE ONE (10:24)
[2020-08-29] MEDS ORDERED: BACITRACIN INJ 50,000 UNIT VIAL ONE (11:06)
[2020-08-29] MEDS ORDERED: SODIUM CHLORIDE 0.9% PF 50 ML VIAL ONE (11:06)
[2020-08-29] MEDS ORDERED: BUPIVACAINE LIPOSOME 1.3% 266 MG/20 ML VIAL ONE (11:06)
[2020-08-29] MEDS ORDERED: VANCOMYCIN HCL 1000MG/20ML VIAL ONE (11:07)
[2020-08-29] MEDS ORDERED: BUPIVACAINE 0.25% 30 ML VIAL ONE (11:08)
[2020-08-29] MEDS ORDERED: EPINEPHrine INJ 1 MG/ML AMP ONE (11:08)
--- NOTE | 2020-08-29 13:51 | Operative Report ---
Post Operative Report Pre & Post Diagnosis Operation Date: 08/29/20 10:40 Pre-Op Diagnosis: Painful Right Unicompartmental Knee Replacement due to aseptic loosening. Post-Op Diagnosis: Painful Right Unicompartmental Knee Replacement due to aseptic loosening. I identified the patient and participated in the time-out.: Yes Procedure Operation Date: 08/29/20 10:40 Actual Procedures p Right Unicompartmental Revision to Total Knee Replacement, Cemented(Right) - Baltazar Dickson MD Surgeon Baltazar Dickson MD Supervisor Residential ESTEFANY Mccarthy Estimated Blood Loss 50 Findings Consistent with Post-Op Diagnosis Operative findings revealed significant serosanguineous effusion. Some fairly mild synovitis with chronic hemosiderin staining of the synovium. There was looseness to the tibial tray. The femoral component was appeared to have more well fixed. No sign of polywear. The remainder of her compartments look pretty well-preserved. Fluids 600 cc Specimens Right knee synovium sent for pathology which revealed 0 polys per high-power field. Right knee joint fluid sent for stat Gram stain aerobic and aerobic culture. Drains None Anesthesia Type Spinal Complications none Disposition Accompanied Patient To Recovery: No Disposition: Recovery Room Indications Patient is a 55-year-old very active female has had a long history of bilateral knee problems. She underwent knee scopes in the past as well as a left partial knee replacement right partial knee replacement about 10 months ago. She initially did pretty well but then developed recurrent effusions in her knee. She underwent extensive infectious evaluation which was all negative. She continued have recurrent knee effusion. On x-ray there was suggestion of loosening of the tibial and possibly the femoral components. She elected proceed with surgical treatment. Description of Procedure Operative implants consist of: 1. Biomet Vanguard size 65 right posterior stabilized femoral component. 2. Biomet size 67 Vanguard III 60 tibial tray with a 13 x 80 mm stem with a 5.0 mm offset and a small cruciate wing. 3. 16 mm posterior stabilized polyethylene insert. 4. 31 x 8 all polypatella. The patient was taken the operating identified and placed on the operating table supine position but all contractors were properly padded. IV antibiotics tried by anesthesia team. A spinal anesthetic and abductor canal block had provided holding area. San catheter was placed in sterile fashion. Right factor was then placed in the right lower extremities and prepped and draped in usual sterile fashion. The right leg was elevated exsanguinated with use of an Esmarch and turns placed at 300 mmHg. An anterior approach of the right knee was then performed to a curvilinear incision using the previous incision and then bearing it up over the kneecap and over the quad tendon and then distally medial to the tibial tubercle. Sharp dissection was got through subcutaneous tissue down to the extensor mechanism. A medial parapatellar arthrotomy incision was made. Some subperiosteal dissection was carried medially. The knee was then brought out in full extension. I did a complete synovectomy of the suprapatellar pouch, medial and lateral gutters, and the medial and lateral leg distal portions of the incision and underneath the patella tendon. Great care was taken to protect the tibial tubercle insertion at all times. The the patella was then subluxated laterally. The lateral patellofemoral ligament was released. The ACL and PCL were in the recent the distal femur and the tibia subluxated anteriorly. I then used a thin sawblade along with a stacked osteotome technique to loosen and remove the tibial tray which did appear a loose but with pretty good fibrous fixation. The tibial eminence was then resected. I then reamed up to a size 13 and left the reamer in place. I cut the proximal tibia to remove about a millimeter bone from most efficient aspect of the medial side. The tibia sized to a size 67. The 5 mm offset guide was selected and the tibia was prepared for a 80 x 13 mm offset stem with a 67 tray and a small cruciate wing. The trial implant was assembled and placed and fit fairly nicely. There was a little bit of cement gap medially which was left and felt to be acceptable. Attention drawn the femur. The distal femur was entered the sharp drill bit intramedullary canal was suction. A right 5 degree valgus cutting guide was placed but distal femoral cutting block was pinned in place but distal femoral cut was made to take an additional 3 mm of bone off distal femur. The femur was then sized to a size 65. We did downsize this almost an entire size. The AP cutting block was pinned parallel to the epicondylar axis. The anterior cut, anterior chamfer, posterior cut, posterior chamfer cuts were made. Box cutting guide was placed in just slight lateral box cut was made. The knee was flexed. Full was left in the medial lateral menisci were excised. The posterior osteophytes were removed. The trial femoral component was placed through the tibia subluxated anterior. The tibial tray was already in place. I then trialed the knee in 16 mm insert fit most appropriately. Attention was then drawn to the patella. Total cleaned of all soft tissues. Patella thickness measured 24 mm in thickness cut down to 14. Was sized to a size 31 patella. Locals were drilled for 31 patella. Lateral osteophytes removed. Patella button was placed. Knee was taken through range of motion patella tracked nicely with no thumbs test. Attention drawn to place the permanent components. All trial components were removed. A bone plug was placed in the distal femur limit blood loss. A double batch of Palacos G cement was mixed with an additional gram of vancomycin. A Biomet Vanguard size 65 right posterior stabilized femoral component, a size 67 tibial tray with a five millimeters offset, 80 mm x 13 mm stem and a small cruciate wing, 16 mm posterior stabilized polyethylene, and a 31 x 8 all polypatella were then cemented in place. The knee was brought out in full extension total cement hardened. Final cement check was then performed. The wound was irrigated extensively. I injected locally with 100 cc of combination of 20 cc of Exparel, 30 cc normal saline, 50 cc of quarter percent Marcaine with epinephrine. Patient did receive 1 g tranexamic acid. The turn was then let down for final turn time of 87 minutes. Hemostasis assured use electrocautery to the extensor mechanism closed with combination 1 PDS suture #1 Vicryl suture in [id number] fashion. Extensor mechanism checked found to be intact with subcutaneous tissue then closed with 2 Dexon suture in a buried interrupted fashion. Skin was closed skin liseth. Leg was then cleaned dried a sterile dressing both Xeroform, 4 fours, sterile cast padding, Percy bandage applied. Patient then transferred to the recovery room in stable condition. Patient tolerated procedure well and there were no complications. Luis Mccarthy, my physician bilingual executive assistant, was present for the entire procedure. His assistance was essential and required for appropriate patient positioning, prepping and draping, surgical exposure, performing the technical details of the operation, placement the implants, closure of the wound, and placement of the sterile bandage. I attest to the content of the Intraoperative Record and any orders documented therein. Any exceptions are noted below.
--- NOTE | 2020-08-29 14:01 | XRay Report ---
RIGHT KNEE 2 VIEWS History: Right total knee arthroplasty. Revision. Postop. FINDINGS: The patient is status post a right total knee arthroplasty. The hardware is intact. No frac ture or dislocation. Skin liseth are in place. IMPRESSION: Right total knee arthroplasty. No evidence for hardware complication. ACT 112: Negative or not required by law. Electronically signed by: Paolo Garza M.D. 08/29/2020 1:59 PM
--- NOTE | 2020-08-29 14:08 | Anesthesiology Progress Note ---
Date of Service August 29, 2020 Anesthesia Post Procedure Vital Signs Vital Signs: Temp Pulse Pulse Resp BP Pulse Ox 08/29/20 14:05 36.4 C L 77 13 117/74 96 08/29/20 13:55 72 13 114/75 96 08/29/20 13:45 81 15 110/72 97 08/29/20 13:39 36.6 C 93 H 16 116/74 98 08/29/20 09:12 36.6 C 84 18 135/93 97 Transfer of Care Handoff Completed per policy Notes Mental Status: alert / awake / arousable and participated in evaluation Nausea / Vomiting: adequately controlled Pain: adequately controlled Airway Patency, RR, SpO2: stable & adequate BP & HR: stable & adequate Hydration State: stable & adequate Neuraxial Anesthesia: was administered and sensory block is resolving Anesthetic Complications: no major complications apparent and Pt Satisfied with anesthetic care
[2020-08-29] MEDS ORDERED: bisacodyL 10 MG SUPP PR PRN (15:41)
[2020-08-29] MEDS ORDERED: ALUMINUM/MAGNESIUM SUSP 30 ML UDC PO PRN (15:41)
[2020-08-29] MEDS ORDERED: diphenhydrAMINE Capsule 25 MG CAP PO PRN (15:41)
[2020-08-29] MEDS ORDERED: SUMAtriptan succinate 6 MG/0.5 ML VIAL SQ PRN (15:41)
[2020-08-29] MEDS ORDERED: NALOXONE HCL 0.4 MG/1 ML VIAL/CARP IV PRN (15:41)
[2020-08-29] MEDS ORDERED: MAGNESIUM HYDROXIDE SUSP 30 ML UDC PO PRN (15:41)
[2020-08-29] MEDS ORDERED: HYDROmorphone INJ 0.5 MG/0.5 ML SYR IV PRN (15:41)
[2020-08-29] MEDS ORDERED: METOCLOPRAMIDE HCL INJ 5 MG/ML 2 ML VIAL IV PRN (15:41)
[2020-08-29] MEDS ORDERED: SODIUM CHLORIDE 0.9% 1000ML 1,000 ML IV SCH (15:41)
[2020-08-29] MEDS ORDERED: CYCLOBENZAPRINE HCL 10 MG TAB PO PRN (16:09)
[2020-08-29] MEDS ORDERED: LORazepam 1 MG TAB PO PRN (16:11)
[2020-08-29] MEDS: oxyCODONE HCL IR 5 MG TAB (IMMEDIATE RELEASE) PO PRN ×2 (16:28→23:23)
[2020-08-29] MEDS: ACETAMINOPHEN 500 MG TAB PO SCH ×2 (16:31→22:02)
[2020-08-29] MEDS: Scopolamine CHECK PATCH PLACEMENT SCH ×2 (16:31→23:36)
[2020-08-29] MEDS: FERROUS GLUCONATE 324 MG TAB PO SCH (17:37)
[2020-08-29] MEDS: ASCORBIC ACID 500 MG TAB PO SCH (17:37)
[2020-08-29] MEDS: KETOROLAC 30 MG/ML VIAL IV SCH ×2 (17:40→23:09)
[2020-08-29] MEDS ORDERED: TRANEXAMIC ACID / 0.7% NACL 1,000 MG/100 ML BAG IV SCH (19:39)
[2020-08-29] MEDS: TAPENTADOL HCL ER 50 MG TABCR PO SCH (20:34)
[2020-08-29] MEDS: ceFAZolin 1000MG 1,000 MG/7.5 ML SYR IV SCH (20:35)
[2020-08-29] MEDS: DOCUSATE SODIUM 100 MG CAP PO SCH (20:42)
[2020-08-29] MEDS: ASPIRIN 81 MG ECTAB PO SCH (20:43)
[2020-08-29] MEDS ORDERED: ROSUVASTATIN CALCIUM 10 MG TAB PO SCH (21:00)
[2020-08-29] MEDS ORDERED: SENNA 8.6 MG TAB PO SCH (21:00)
[2020-08-29] MEDS ORDERED: AMITRIPTYLINE HCL 25 MG TAB PO SCH (21:00)
[2020-08-30] MEDS: ceFAZolin 1000MG 1,000 MG/7.5 ML SYR IV SCH (03:15)
[2020-08-30] MEDS: ACETAMINOPHEN 500 MG TAB PO SCH (05:57)
[2020-08-30] MEDS: KETOROLAC 30 MG/ML VIAL IV SCH ×2 (05:58→12:25)
[2020-08-30] MEDS ORDERED: LEVOTHYROXINE SODIUM 75 MCG TABLET PO SCH (06:30)
[2020-08-30 07:50] LABS: Hematocrit (blood only) 26.2 % (37-47); Hemoglobin 8.8 g/dL (12.0-16.0); Mean Corpuscular Hemoglobin 31.2 pg (25-34); Mean Corpuscular Hgb Conc 33.6 g/dL (32-36); Mean Corpuscular Volume 92.9 fL (80-100); Mean Platelet Volume 9.2 fL (7.4-10.4); Platelet Count 325 K/uL (130-400); RDW Coefficient of Variation 12.8 % (11.5-14.5); Red Blood Count 2.82 M/uL (4.2-5.4); White Blood Count 3.89 K/uL (4.8-10.8)
[2020-08-30] MEDS ORDERED: dexAMETHasone 4 MG TAB PO SCH (08:00)
[2020-08-30] MEDS: oxyCODONE HCL IR 5 MG TAB (IMMEDIATE RELEASE) PO PRN ×2 (08:02→13:31)
[2020-08-30] MEDS: DOCUSATE SODIUM 100 MG CAP PO SCH (08:04)
[2020-08-30] MEDS: ASPIRIN 81 MG ECTAB PO SCH (08:04)
[2020-08-30] MEDS: Scopolamine CHECK PATCH PLACEMENT SCH (08:05)
[2020-08-30] MEDS: ASCORBIC ACID 500 MG TAB PO SCH (08:05)
[2020-08-30] MEDS: TAPENTADOL HCL ER 50 MG TABCR PO SCH (08:10)
--- NOTE | 2020-08-30 08:19 | Anesthesiology Progress Note ---
Date of Service August 30, 2020 Anesthesia Post Procedure Vital Signs Vital Signs: Temp Pulse Pulse Pulse Resp BP BP 08/30/20 07:36 36.6 C 88 16 123/82 08/30/20 03:04 36.7 C 80 16 122/75 08/29/20 23:00 36.7 C 79 16 137/87 08/29/20 18:50 36.3 C L 68 16 137/91 08/29/20 17:45 69 16 147/91 H 08/29/20 16:38 58 L 16 160/98 H 08/29/20 16:14 65 16 151/97 H 08/29/20 15:47 36.3 C L 65 14 124/84 08/29/20 15:30 63 12 129/87 08/29/20 15:15 65 14 117/87 08/29/20 15:00 76 20 123/75 08/29/20 14:45 85 18 125/94 08/29/20 14:30 79 16 119/89 08/29/20 14:15 77 13 119/71 08/29/20 14:05 36.4 C L 77 13 117/74 08/29/20 13:55 72 13 114/75 08/29/20 13:45 81 15 110/72 08/29/20 13:39 36.6 C 93 H 16 116/74 08/29/20 09:12 36.6 C 84 18 135/93 Pulse Ox 08/30/20 07:36 98 08/30/20 03:04 93 08/29/20 23:00 97 08/29/20 18:50 100 08/29/20 17:45 99 08/29/20 16:38 100 08/29/20 16:14 100 08/29/20 15:47 100 08/29/20 15:30 97 08/29/20 15:15 97 08/29/20 15:00 97 08/29/20 14:45 93 08/29/20 14:30 95 08/29/20 14:15 97 08/29/20 14:05 96 08/29/20 13:55 96 08/29/20 13:45 97 08/29/20 13:39 98 08/29/20 09:12 97 Notes Mental Status: alert / awake / arousable Nausea / Vomiting: adequately controlled Pain: adequately controlled Airway Patency, RR, SpO2: stable & adequate BP & HR: stable & adequate Hydration State: stable & adequate Neuraxial Anesthesia: was administered and sensory block resolved Anesthetic Complications: no major complications apparent and Pt Satisfied with anesthetic care
[2020-08-30 08:24] LABS: BUN Creatinine Ratio 10.9 (10-20); Calcium 8.9 mg/dl (8.5-10.1); Creatinine Clr Calc Pharmacy 91.2 ml/min; Est GFR (African American) 113.9; Est GFR (Non-African American) 98.3; Potassium 3.6 mmol/L (3.5-5.1)
[2020-08-30] MEDS: FERROUS GLUCONATE 324 MG TAB PO SCH (08:44)
[2020-08-30] MEDS ORDERED: CALCIUM 600MG + VIT D 400 IU TAB PO SCH (09:00)
[2020-08-30] MEDS ORDERED: CHOLECALCIFEROL 1,000 UNITS 25 MCG TAB PO SCH (09:00)
[2020-08-30] MEDS ORDERED: MULTIVITAMIN TAB PO SCH ×2 (09:00)
--- NOTE | 2020-08-30 10:24 | Progress Notes ---
DATE: 08/30/2020 SUBJECTIVE: A 55-year-old white female postop day 1 from a revision knee replacement. She is doing well. Pain has been reasonably well controlled, had a decent night. No chest pain or shortness of breath. Not feeling dizzy or lightheaded. OBJECTIVE: VITAL SIGNS: Temperature 36.6. Vital signs stable. GENERAL: Shows a pleasant, middle-aged female. She is sitting up in bed, looks reasonably comfortable. LUNGS: Clear to auscultation. HEART: Has a regular rate and rhythm. ABDOMEN: Soft, nontender, nondistended. EXTREMITIES: Grossly neurovascularly intact except as follows: Examination of the right leg reveals the leg to be well aligned. Dressing is clean, dry and intact. She can dorsiflex and plantarflex her foot appropriately. She is neurologically intact. LABORATORY DATA: Hemoglobin 8.8. Hematocrit 26.2. Electrolytes are stable. ASSESSMENT: A 55-year-old white female postoperative day 1 from a right revision knee arthroplasty. She is doing quite well. Pain is controlled. She is anemic, but without symptoms. Otherwise healthy. PLAN: 1. DVT prophylaxis including thigh-high TEDs, SCDs, and aspirin twice a day. She does have elevated platelets and the aspirin should assist with that. 2. PT/OT. Weight bear as tolerated. Right total knee protocol. 3. Pain control, doing well with current pain regimen. 4. Anemia. Currently asymptomatic. She is otherwise healthy and tolerates this hemoglobin without difficulties. We will continue iron supplementation. 5. Disposition: Plan to discharge to home with some home health likely later today if does okay in therapy.
--- NOTE | 2020-09-02 06:30 | Discharge Summary ---
Date of Service September 02, 2020 Discharge Data Procedures Performed Operation Date: 08/29/20 10:40 Actual Procedures p Right Unicompartmental Revision to Total Knee Replacement, Cemented(Right) - Baltazar Dickson MD Hospital Course (1) Status post total right knee replacement: This patient is a 55 year old female admitted on and underwent revision of a partial knee to total knee replacement. She tolerated the procedure well and there were no complications. Transferred to the PACU post op and later to the orthopedic floor for further care. She was given ancef for antibiotic prophylaxis. She was also given DILLON stockings, SCDs, and aspirin for DVT prophylaxis. Hemoglobin, hematocrit, and vital signs were monitored during her hospital stay and remained stable. She did have some anemia but did not require any blood transfusions. She was given an iron supplement. There were no complications during her hospital stay. By post op day #1 the patient was tolerating a regular diet, pain was reasonably controlled with oral pain medicine, and she was participating in physical therapy. On post op day #1 the patient was discharged home and set up with home health care. She was given printed discharge instructions including prescriptions for extra strength tylenol, aspirin, and oxycodone. Continue physical therapy, weight bearing as tolerated. Continue DILLON stockings. Follow up approximately 2 weeks post op or sooner if there are problems or concerns. Coding Level of Care Code None Diagnoses Status post total right knee replacement Z96.651
== END 2020-08-30 14:15 | disposition home health service (06) ==
LOC: ASU 08:32 → 3W 08:32